=== PATIENT | male | born 1945 | race Caucasian/White ===

== ENCOUNTER 2016-07-02 20:42 | Emergency (ER) | payer OTHER ==
[~2016-07-02] VITALS: Ht 172.7 cm; Wt 83.9 kg
[~2016-07-02 20:42] MED LIST: ASPI81TA2 PO; ATOR40TA59 PO; CYCL10TA2 PO; FURO20TA3 PO; GLIP5TAB10 PO; HYDR-971 PO; INSU100C4 SQ; INSU100I13 SQ; LEVO25TA4 PO; LISI40TA PO; METO25TA4 PO; MULT1TAB52 PO; OMEG500C3 PO; OMEP40CA5 PO; OXYC-323 PO; PRAZ2CAP2 PO; VALA10005 PO
[2016-07-02 20:45] VITALS: BP 131/60
--- NOTE | 2016-07-02 23:06 | ED.ADGEN ---
Past Medical History Past Medical History: Diabetes-Type II, Gallstones, GERD, High Cholesterol, Hypertension, Hypothyroid, Pancreatitis, Renal Disease, Renal Failure, Sciatica , Other Additional Past Medical Histor: PTSD;CHRONIC BACK PAIN,ENLARGED PROSTATE,CKD Past Surgical History: Appendectomy, Cholecystectomy, Tonsillectomy, Other Additional Past Surgical Histo: sinus sx; abdominal,HERNIA X2,L ENDARECTOMY, BILATERAL LEG VEIN STRIPPING Alcohol Use: Rarely Drug Use: None Adult General Chief Complaint Chief Complaint: MULTIPLE COMPLAINTS HPI HPI Patient is a 70 year old [man, history of type 2 diabetes mellitus, hypertension, hyperlipidemia, pancreatitis, chronic renal insufficiency, who presents to the emergency department with a complaint of several days of cough, generalized malaise, body aches, sore throat, with nausea and vomiting times several episodes today. Patient is positive for sick contacts among his family. He denies any abdominal pain, any diarrhea, states that he had a temperature of 101.1 at home. Has not taken any antipyretics prior to coming to the ED, temperature here is 99.2. patient states it experiencing chronic sinus problems , and finished a course of antibiotics today from his primary care provider, amoxicillin for his sinuses, he states that he does not believe this has helped , denies any change in his symptoms, complaining of congestion and occasional headaches. Review of Systems Review of Systems Constitutional: Denies fever or chills. [] Eyes: Denies change in visual acuity. [] HENT: Nasal congestion, sore throat and cough. Respiratory: Denies shortness breath, complaining of cough. Cardiovascular: Denies chest pain or edema. [] GI: Denies abdominal pain, nausea, vomiting, no bloody stools or diarrhea. : Denies dysuria. [] Musculoskeletal: Denies back pain or joint pain. [] Integument: Denies rash. [] Neurologic: Denies headache, focal weakness or sensory changes. [] Endocrine: Denies polyuria or polydipsia. [] Lymphatic: Denies swollen glands. [] Psychiatric: Denies depression or anxiety. [] Current Medications Current Medications Current Medications Medications (Trade) Dose Ordered Sig/Hayley Start Time Stop Time Status Last Admin Dose Admin Acetaminophen (Tylenol) 1,000 mg 1X ONCE 07/02/16 23:30 07/02/16 23:31 DC 2/15/17 23:53 1,000 MG Benzonatate (Tessalon Perle) 100 mg 1X ONCE 07/02/16 23:30 07/02/16 23:31 DC 07/02/16 23:53 100 MG Ondansetron HCl (Zofran Odt) 4 mg STK-MED ONCE 07/02/16 23:57 07/02/16 23:58 DC Ondansetron HCl (Zofran) 4 mg 1X ONCE 07/02/16 23:30 07/02/16 23:31 DC Allergies Allergies Allergies Coded Allergies Type Severity Reaction Last Updated Verified azithromycin Allergy Intermediate 04/30/16 No divalproex sodium Allergy Intermediate 04/30/16 No niacin Allergy Intermediate 04/30/16 No Physical Exam Physical Exam Constitutional: Well developed, well nourished, no acute distress, non-toxic appearance. [] HENT: Normocephalic, atraumatic, bilateral external ears normal, oropharynx moist, no oral exudates, turbinate are mildly swollen, clear rhinorrhea noted, patient with injection oropharynx, no exudate identified. Eyes: PERRLA, EOMI, conjunctiva normal, no discharge. [] Neck: Normal range of motion, no tenderness, supple, no stridor. [] Cardiovascular:Heart rate regular rhythm, no murmur, S1, S2, rubs or gallops. [] Lungs & Thorax: Bilateral breath sounds clear to auscultation, no wheezing, rhonchi, rales. No chest wall tenderness or crepitus. [] Abdomen: Bowel sounds normal, soft, no tenderness, no rebound, rigidity, no guarding, no masses, no pulsatile masses. [] Skin: Warm, dry, no erythema, no rash. [] Back: No tenderness, no CVA tenderness. [] Extremities: No tenderness, no cyanosis, no clubbing, ROM intact, no edema. [ Negative Homans sign.] Neurologic: Alert and oriented X 3, normal motor function, normal sensory function, no focal deficits noted. [] Psychologic: Affect normal, judgement normal, mood normal. [] Current Patient Data Vital Signs Vital Signs Date Time Temp Pulse Resp B/P Pulse Ox O2 Delivery O2 Flow Rate FiO2 07/02/16 20:45 99.2 93 18 131/60 97 Room Air 99.2 Lab Values Laboratory Tests Test 07/02/16 22:35 07/02/16 23:25 Influenza Type A Antigen Negative (NEGATIVE) Influenza Type B Antigen Negative (NEGATIVE) White Blood Count 11.1x10^3/uL (4.0-11.0) H Red Blood Count 4.91x10^6/uL (4.30-5.70) Hemoglobin 15.8g/dL (13.0-17.5) Hematocrit 47.7% (39.0-53.0) Mean Corpuscular Volume 97fL (79-100) Mean Corpuscular Hemoglobin 32pg (25-35) Mean Corpuscular Hemoglobin Concent 33g/dL (31-37) Red Cell Distribution Width 14.5% (11.5-14.5) Platelet Count 94x10^3/uL (140-400) L Neutrophils (%) (Auto) 89% (31-73) H Lymphocytes (%) (Auto) 3% (24-48) L Monocytes (%) (Auto) 7% (0-9) Eosinophils (%) (Auto) 1% (0-3) Basophils (%) (Auto) 0% (0-3) Neutrophils # (Auto) 9.9x10^3uL (1.8-7.7) H Lymphocytes # (Auto) 0.3x10^3/uL (1.0-4.8) L Monocytes # (Auto) 0.7x10^3/uL (0.0-1.1) Eosinophils # (Auto) 0.1x10^3/uL (0.0-0.7) Basophils # (Auto) 0.0x10^3/uL (0.0-0.2) Platelet Estimate Pending Sodium Level 136mmol/L (136-145) Potassium Level 4.6mmol/L (3.5-5.1) Chloride Level 103mmol/L (98-107) Carbon Dioxide Level 30mmol/L (21-32) Anion Gap 3 (6-14) L Blood Urea Nitrogen 36mg/dL (8-26) H Creatinine 1.7mg/dL (0.7-1.3) H Estimated GFR (Cockcroft-Gault) 40.2 Glucose Level 149mg/dL (70-99) H Calcium Level 9.0mg/dL (8.5-10.1) Total Bilirubin 0.9mg/dL (0.2-1.0) Direct Bilirubin 0.1mg/dL (0.0-0.2) Aspartate Amino Transferase (AST) 21U/L (15-37) Alanine Aminotransferase (ALT) 24U/L (16-63) Alkaline Phosphatase 58U/L (46-116) Total Protein 7.1g/dL (6.4-8.2) Albumin 3.5g/dL (3.4-5.0) Lipase 200U/L (73-393) Laboratory Tests 07/02/16 23:25 Laboratory Tests 07/02/16 23:25 EKG EKG ECG: Sinus rhythm, heart rate 90 bpm, no ectopy. As interpreted by me. Radiology/Procedures Radiology/Procedures Chest x-ray: Two-view: Normal cardiopulmonary silhouette, no infiltrates, no effusions, no infiltrates, no soft tissue or bony abnormalities identified. As interpreted by me. [] Course & Med Decision Making Course & Med Decision Making Pertinent Labs and Imaging studies reviewed. (See chart for details) On reevaluation patient states he is feeling better, and has received Tessalon Perle and Tylenol in the ED without issue. Symptoms and examination are consistent with a viral illness, patient's flu swab was negative and the ED. Was ordered Zofran, was not administered at this point, and patient states that he is ready to go home. I did discuss with patient that his laboratory studies revealed some renal sufficiency, she states he is consistent with his prior. Discussed with patient that as he is been unsuccessful in [facility], discussed that he will be given the number for Dr. Sorensen of otolaryngology, and he can attempt to make an appointment for additional evaluation to this resource, or his primary care provider again. We discussed concerning symptoms that prompt return, patient is anxious to be discharged at this time. Discussed additional adjuvant to use for his chronic sinus issues, at this time I'm no evidence of active infection, we'll hold off on additional antibiotics, will tend Flonase for congestive symptoms, with follow-up as previously discussed, and return to the ED as needed. Patient voiced understanding and agreement, discharged home in stable condition with plan as above. Dragon Disclaimer Dragon Disclaimer This electronic medical record was generated, in whole or in part, using a voice recognition dictation system. Departure Impression: Primary Impression: Viral illness Additional Impression: Sinus congestion Disposition: HOME, SELF-CARE Condition: IMPROVED Scripts Fluticasone Propionate (Flonase Allergy Relief)9.9 Ml [place].susp2 Sprays NS DAILY PRN CONGESTION #1 BOTTLE Prov:SHANTEL TORRES DO 07/03/16 Problem Qualifiers SHANTEL TORRES DO Jul 02, 2016 23:06
[2016-07-02 23:12] LABS: OBC FLU VALID
[2016-07-02] MEDS ORDERED: ONDANSETRON PF 4 MG/2 ML VIAL. IV ONE (23:30)
[2016-07-02] MEDS ORDERED: ACETAMINOPHEN 500 MG TABLET PO ONE (23:30)
[2016-07-02] MEDS ORDERED: BENZONATATE 100 MG CAPSULE. PO ONE (23:30)
[2016-07-02 23:37] LABS: BASO % 0 % (0-3); EOS % 1 % (0-3); HEMATOCRIT 47.7 % (39.0-53.0); HEMOGLOBIN 15.8 g/dL (13.0-17.5); LYMPH # 0.3 x10^3/uL (1.0-4.8); LYMPH % 3 % (24-48); MEAN CORPUSCULAR HEMOGLOBIN 32 pg (25-35); MEAN CORPUSCULAR HGB CONC 33 g/dL (31-37); MEAN CORPUSCULAR VOLUME 97 fL (79-100); MONO % 7 % (0-9); NEUT % 89 % (31-73); PLATELET COUNT 94 x10^3/uL (140-400); RED BLOOD COUNT 4.91 x10^6/uL (4.30-5.70); RED CELL DISTRIBUTION WIDTH 14.5 % (11.5-14.5); WHITE BLOOD COUNT 11.1 x10^3/uL (4.0-11.0)
[2016-07-02 23:51] LABS: CREATININE 1.7 mg/dL (0.7-1.3); GFR 40.2; POTASSIUM 4.6 mmol/L (3.5-5.1)
[2016-07-02 23:55] LABS: ALBUMIN 3.5 g/dL (3.4-5.0); DIRECT BILIRUBIN 0.1 mg/dL (0.0-0.2); TOTAL BILIRUBIN 0.9 mg/dL (0.2-1.0); TOTAL PROTEIN 7.1 g/dL (6.4-8.2)
[2016-07-02] MEDS ORDERED: ONDANSETRON ODT 4 MG TAB.RAPDIS ONE (23:57)
[2016-07-03] MEDS ORDERED: FLUT9.9S NS (00:15)
[2016-07-03 05:01] LABS: % EOS 1 % (0-5)
[2016-07-03 05:02] LABS: PLT ESTIMATE DECREASED (ADEQUATE)
--- NOTE | 2016-07-03 07:36 | RAD ---
Chest, 2 views, 07/02/2016: History: Cough and fever The heart size and pulmonary vascularity are normal. No pulmonary infiltrates are seen. There is no evidence of pleural fluid. There is deformity of the second and third ribs on the right which may be on a congenital or posttraumatic basis. There are mild scattered spurs in the spine. IMPRESSION: No acute cardiopulmonary abnormality is detected.
== END 2016-07-03 00:27 | disposition home or self-care (01) ==
LOC: ER 20:42
DX: B34.9 Viral infection, unspecified (principal); R11.2 Nausea with vomiting, unspecified; M79.1 Myalgia; E78.00 Pure hypercholesterolemia, unspecified; E11.22 Type 2 diabetes mellitus with diabetic chronic kidney disease; I12.9 Hypertensive chronic kidney disease with stage 1 through stage 4 chronic kidney disease, or unspecified chronic kidney disease; N18.9 Chronic kidney disease, unspecified; E03.9 Hypothyroidism, unspecified; G89.29 Other chronic pain; F43.10 Post-traumatic stress disorder, unspecified; K21.9 Gastro-esophageal reflux disease without esophagitis; N40.0 Benign prostatic hyperplasia without lower urinary tract symptoms; Z90.49 Acquired absence of other specified parts of digestive tract; Z90.89 Acquired absence of other organs
CPT/HCPCS: 36415; 71020; 80048; 80076; 82947; 83690; 85007; 85027; 87804; 99285-25

== ENCOUNTER 2016-09-12 12:52 | Emergency (ER) | payer OTHER ==
[~2016-09-12] VITALS: Ht 172.7 cm; Wt 83.9 kg
[~2016-09-12 12:52] MED LIST changes: +FLUT9.9S NS
[2016-09-12 13:21] LABS: BILIRUBIN,URINE NEGATIVE (NEG); GLUCOSE,URINE NEGATIVE (NEG); NITRITE,URINE NEGATIVE (NEG); PH,URINE 5.5; PROTEIN,URINE 30 mg/dL (NEG-TRACE); UROBILINOGEN,URINE 0.2 mg/dL (0.2 mg/dL)
[2016-09-12 13:29] LABS: BACTERIA,URINE 0 /HPF (0-FEW); RBC,URINE 0 /HPF (0-2)
[2016-09-12] MEDS ORDERED: ONDANSETRON PF 4 MG/2 ML VIAL. IV ONE (13:30)
[2016-09-12] MEDS ORDERED: FENTANYL PF 100 MCG/2 ML VIAL. IV ONE (13:30)
[2016-09-12 13:34] LABS: BASO % 1 % (0-3); EOS % 4 % (0-3); HEMATOCRIT 41.5 % (39.0-53.0); HEMOGLOBIN 14.1 g/dL (13.0-17.5); LYMPH # 1.1 x10^3/uL (1.0-4.8); LYMPH % 15 % (24-48); MEAN CORPUSCULAR HEMOGLOBIN 33 pg (25-35); MEAN CORPUSCULAR HGB CONC 34 g/dL (31-37); MEAN CORPUSCULAR VOLUME 97 fL (79-100); MONO % 8 % (0-9); NEUT % 73 % (31-73); PLATELET COUNT 115 x10^3/uL (140-400); RED BLOOD COUNT 4.27 x10^6/uL (4.30-5.70); WHITE BLOOD COUNT 7.4 x10^3/uL (4.0-11.0)
[2016-09-12 13:51] LABS: CREATININE 1.6 mg/dL (0.7-1.3); GFR 43.1; POTASSIUM 4.5 mmol/L (3.5-5.1)
--- NOTE | 2016-09-12 15:16 | PHYS DOC ---
Past Medical History Past Medical History: Diabetes-Type II, Gallstones, GERD, High Cholesterol, Hypertension, Hypothyroid, Pancreatitis, Renal Disease, Renal Failure, Sciatica , Other Additional Past Medical Histor: PTSD;CHRONIC BACK PAIN,ENLARGED PROSTATE,CKD, abd hernia Past Surgical History: Appendectomy, Cholecystectomy, Tonsillectomy, Other Additional Past Surgical Histo: sinus sx; abdominal,HERNIA X2,L ENDARECTOMY, BILATERAL LEG VEIN STRIPPING Alcohol Use: Rarely Drug Use: None Adult General Chief Complaint Chief Complaint: ABDOMINAL PAIN HPI HPI Patient is a 70 year old male who presents with rectal pain with bowel movements and suprapubic abdominal pain with urination for the past few days. States he has minimal resting pain in his lower left quadrant. Pains are intermittent, achy and crampy. He denies fever or chills, nausea or vomiting, hematuria, back pain, bloody or dark stools, testicle pain or swelling. Review of Systems Review of Systems Constitutional: Denies fever or chills [] Eyes: Denies change in visual acuity, redness, or eye pain [] HENT: Denies nasal congestion or sore throat [] Respiratory: Denies cough or shortness of breath [] Cardiovascular: No additional information not addressed in HPI [] GI: Denies nausea, vomiting, bloody stools or diarrhea [] : Denies hematuria [] Musculoskeletal: Denies back pain or joint pain [] Integument: Denies rash or skin lesions [] Neurologic: Denies headache, focal weakness or sensory changes [] Endocrine: Denies polyuria or polydipsia [] Current Medications Current Medications Current Medications Medications (Trade) Dose Ordered Sig/Hayley Start Time Stop Time Status Last Admin Dose Admin Fentanyl Citrate (Fentanyl 2ml Vial) 50 mcg 1X ONCE 09/12/16 13:30 09/12/16 13:31 DC 09/12/16 13:59 50 MCG Ondansetron HCl (Zofran) 4 mg 1X ONCE 09/12/16 13:30 09/12/16 13:31 DC 09/12/16 13:58 4 MG Allergies Allergies Allergies Coded Allergies Type Severity Reaction Last Updated Verified azithromycin Allergy Intermediate 04/30/16 No divalproex sodium Allergy Intermediate 04/30/16 No niacin Allergy Intermediate 04/30/16 No Physical Exam Physical Exam Constitutional: Well developed, well nourished, no acute distress, non-toxic appearance. [] HENT: Normocephalic, atraumatic, bilateral external ears normal, oropharynx moist, nose normal. [] Eyes: PERRLA, EOMI. [] Neck: Normal range of motion, supple. [] Cardiovascular:Heart rate regular rhythm, no murmur [] Lungs & Thorax: Bilateral breath sounds clear to auscultation [] Abdomen: Bowel sounds normal, soft, no tenderness. [] Skin: Warm, dry, no erythema, no rash. [] Back: No tenderness, no CVA tenderness. [] Extremities: No tenderness, ROM intact, no edema. [] Neurologic: Alert and oriented X 3, normal motor function, normal sensory function, no focal deficits noted. [] Psychologic: Affect normal, judgement normal, mood normal. [] Current Patient Data Vital Signs Vital Signs Date Time Temp Pulse Resp B/P Pulse Ox O2 Delivery O2 Flow Rate FiO2 09/12/16 15:33 64 25 163/79 97 09/12/16 14:45 Room Air 09/12/16 13:05 98.1 98.1 Lab Values Laboratory Tests Test 09/12/16 13:05 09/12/16 13:25 Urine Collection Type Unknown Urine Color Yellow Urine Clarity Clear Urine pH 5.5 Urine Specific [place] 1.010 Urine Protein 30mg/dL (NEG-TRACE) Urine Glucose (UA) Negativemg/dL (NEG) Urine Ketones (Stick) Negativemg/dL (NEG) Urine Blood Negative (NEG) Urine Nitrite Negative (NEG) Urine Bilirubin Negative (NEG) Urine Urobilinogen Dipstick 0.2mg/dL (0.2 mg/dL) Urine Leukocyte Esterase Negative (NEG) Urine RBC 0/HPF (0-2) Urine WBC 1-4/HPF (0-4) Urine Bacteria 0/HPF (0-FEW) Urine Hyaline Casts Few/HPF Urine Mucus Slight/LPF White Blood Count 7.4x10^3/uL (4.0-11.0) Red Blood Count 4.27x10^6/uL (4.30-5.70) L Hemoglobin 14.1g/dL (13.0-17.5) Hematocrit 41.5% (39.0-53.0) Mean Corpuscular Volume 97fL (79-100) Mean Corpuscular Hemoglobin 33pg (25-35) Mean Corpuscular Hemoglobin Concent 34g/dL (31-37) Red Cell Distribution Width 14.0% (11.5-14.5) Platelet Count 115x10^3/uL (140-400) L Neutrophils (%) (Auto) 73% (31-73) Lymphocytes (%) (Auto) 15% (24-48) L Monocytes (%) (Auto) 8% (0-9) Eosinophils (%) (Auto) 4% (0-3) H Basophils (%) (Auto) 1% (0-3) Neutrophils # (Auto) 5.4x10^3uL (1.8-7.7) Lymphocytes # (Auto) 1.1x10^3/uL (1.0-4.8) Monocytes # (Auto) 0.6x10^3/uL (0.0-1.1) Eosinophils # (Auto) 0.3x10^3/uL (0.0-0.7) Basophils # (Auto) 0.0x10^3/uL (0.0-0.2) Sodium Level 138mmol/L (136-145) Potassium Level 4.5mmol/L (3.5-5.1) Chloride Level 103mmol/L (98-107) Carbon Dioxide Level 26mmol/L (21-32) Anion Gap 9 (6-14) Blood Urea Nitrogen 32mg/dL (8-26) H Creatinine 1.6mg/dL (0.7-1.3) H Estimated GFR (Cockcroft-Gault) 43.1 Glucose Level 122mg/dL (70-99) H Calcium Level 9.0mg/dL (8.5-10.1) Laboratory Tests 09/12/16 13:25 Laboratory Tests 09/12/16 13:25 Radiology/Procedures Radiology/Procedures CT abdomen and pelvis without contrast IMPRESSION: 1. Nonspecific prostatic enlargement. 2. Moderate diffuse bladder wall thickening compatible with chronic bladder outlet obstruction or cystitis. 3. Minimal sigmoid diverticulosis. 4. Left renal cyst. DICTATED and SIGNED BY: SHILPI AUGUST MD DATE: 09/12/16 8202 Course & Med Decision Making Course & Med Decision Making Pertinent Labs and Imaging studies reviewed. (See chart for details) Workup is unremarkable. Discussed supportive care. Return precautions given. He understands and agrees with plan. Dragon Disclaimer Dragon Disclaimer This electronic medical record was generated, in whole or in part, using a voice recognition dictation system. Departure Departure Impression: Primary Impression: Rectal pain Additional Impression: Dysuria Disposition: 01 HOME, SELF-CARE Condition: STABLE Referrals: NON,STAFF (PCP) Patient Instructions: Abdominal Pain (Nonspecific) Additional Instructions: Take Tylenol or ibuprofen as needed for pain. Follow-up with your primary care doctor within one week. Return for any concerns. Problem Qualifiers Kelly MARIANO MD Sep 12, 2016 15:16
--- NOTE | 2016-09-12 15:24 | RAD ---
CT of the abdomen and pelvis without contrast, 09/12/2016: History: Lower abdominal pain, rectal pain Noncontrast scans were obtained as requested. The gallbladder is surgically absent. The unopacified liver shows no abnormality. No pancreatic abnormality is detected. The spleen is of normal size. There is a 2.5 cm low-density lesion arising from the lateral aspect of left kidney compatible with a cyst. There is bilateral renal scarring. The kidneys show no evidence of obstruction. No adrenal abnormality is detected. There is moderate calcific plaquing of the abdominal aorta and its branches without evidence of aneurysm. There is extensive calcific plaquing involving the proximal left renal artery. No abdominal or pelvic adenopathy is seen. The prostate gland is enlarged measuring 5.3 cm in width. There is moderate diffuse bladder wall thickening. The bowel loops are not dilated. There are several small diverticula in the sigmoid region. No paracolonic inflammatory process is seen. No free fluid or free air is evident in the abdomen or pelvis. There is fascial thickening between the rectus abdominis muscles. There are couple of tiny fascial defects near the midline just above the level of the umbilicus containing only fat. No bowel herniation is evident. IMPRESSION: 1. Nonspecific prostatic enlargement. 2. Moderate diffuse bladder wall thickening compatible with chronic bladder outlet obstruction or cystitis. 3. Minimal sigmoid diverticulosis. 4. Left renal cyst. PQRS Compliance Statement: One or more of the following individualized dose reduction techniques were utilized for this examination: 1. Automated exposure control 2. Adjustment of the mA and/or kV according to patient size 3. Use of iterative reconstruction technique
[2016-09-12 15:33] VITALS: BP 163/79
== END 2016-09-12 15:35 | disposition home or self-care (01) ==
LOC: ER 12:52
DX: K62.89 Other specified diseases of anus and rectum (principal); R30.0 Dysuria; R10.32 Left lower quadrant pain; E11.22 Type 2 diabetes mellitus with diabetic chronic kidney disease; I12.9 Hypertensive chronic kidney disease with stage 1 through stage 4 chronic kidney disease, or unspecified chronic kidney disease; N18.9 Chronic kidney disease, unspecified; K21.9 Gastro-esophageal reflux disease without esophagitis; E78.00 Pure hypercholesterolemia, unspecified; E03.9 Hypothyroidism, unspecified; F43.10 Post-traumatic stress disorder, unspecified; G89.29 Other chronic pain; N40.0 Benign prostatic hyperplasia without lower urinary tract symptoms; Z88.8 Allergy status to other drugs, medicaments and biological substances; Z88.1 Allergy status to other antibiotic agents; Z90.49 Acquired absence of other specified parts of digestive tract
CPT/HCPCS: 36415; 74176; 80048; 81001; 85027; 96374; 96375; 99285; J2405; J3010

== ENCOUNTER 2018-09-20 02:39 | Emergency (ER) | payer OTHER ==
[~2018-09-20] VITALS: Ht 170.2 cm; Wt 84.8 kg
[~2018-09-20 02:39] MED LIST changes: +ASPI-630 PO; -ASPI81TA2 PO; +CETI10TA16 PO; +HYDR-3164 PO; -HYDR-971 PO; +LISI-130 PO; -LISI40TA PO; -OXYC-323 PO; +OXYC1TAB15 PO; +PREG75CA PO; +SENN-37 PO; +SIMV40TA3 PO; +TAMS0.4C97 PO; +VENL75TA PO; +[UNRECOGNIZED DRUG - OTHER]
[2018-09-20 02:52] VITALS: BP 147/77
[2018-09-20] MEDS ORDERED: AMOX1TAB61 PO (02:59)
--- NOTE | 2018-09-20 02:59 | PHYS DOC ---
Past Medical History Past Medical History: Diabetes-Type II, Gallstones, GERD, High Cholesterol, Hypertension, Hypothyroid, Pancreatitis, Renal Disease, Renal Failure, Sciatica, Other Additional Past Medical Histor: PTSD;CHRONIC BACK PAIN,ENLARGED PROSTATE,CKD, abd hernia Past Surgical History: Appendectomy, Cholecystectomy, Tonsillectomy, Other Additional Past Surgical Histo: sinus sx; abdominal,HERNIA X2,L ENDARECTOMY,BILATERAL LEG VEIN STRIPPING Alcohol Use: Occasionally Drug Use: None Adult General Chief Complaint Chief Complaint: EARACHE/EAR PAIN HPI HPI Patient is a 72 year old M who presents with right ear pain. This pain has been present for a few days. He denies any fever or chills but does report some radiation of the pain down into his neck and the back of his head dull Review of Systems Review of Systems Constitutional: Denies fever or chills [] Eyes: Denies change in visual acuity, redness, or eye pain [] HENT: Denies nasal congestion or sore throat [] Musculoskeletal: Denies back pain or joint pain [] Integument: Denies rash or skin lesions [] Neurologic: Denies headache, focal weakness or sensory changes [] Endocrine: Denies polyuria or polydipsia [] All other systems were reviewed and found to be within normal limits, except as documented in this note. Current Medications Current Medications Current Medications Medications (Trade) Dose Ordered Sig/Hayley Start Time Stop Time Status Last Admin Dose Admin Amoxicillin/ Clavulanate Potassium (Augmentin 875/ 125mg) 1 tab 1X ONCE 09/20/18 03:30 09/20/18 03:31 DC 09/20/18 03:28 1 TAB Oxycodone/ Acetaminophen (Percocet 5/325) 2 tab 1X ONCE 09/20/18 03:30 09/20/18 03:31 DC 09/20/18 03:28 2 TAB Allergies Allergies Allergies Coded Allergies Type Severity Reaction Last Updated Verified azithromycin Allergy Intermediate 04/30/16 No divalproex sodium Allergy Intermediate 04/30/16 No niacin Allergy Intermediate 04/30/16 No Physical Exam Physical Exam Constitutional: Well developed, well nourished, no acute distress, non-toxic appearance. [] HENT: Normocephalic, atraumatic, oropharynx moist, no oral exudates, nose normal, focal area of erythema on the lateral aspect of the right tympanic mem brane with effusion, no significant bulging . [] no mastoid ttp no lad on the neck Eyes: PERRLA, EOMI, conjunctiva normal, no discharge. [] Neck: Normal range of motion, no tenderness, supple, no stridor. [] Extremities: No tenderness, no cyanosis, no clubbing, ROM intact, no edema. [] Neurologic: Alert and oriented X 3, normal motor function, normal sensory function, no focal deficits noted. [] Psychologic: Affect normal, judgement normal, mood normal. [] Current Patient Data Vital Signs Vital Signs Date Time Temp Pulse Resp B/P (MAP) Pulse Ox O2 Delivery O2 Flow Rate FiO2 09/20/18 03:28 20 98 Room Air 09/20/18 02:52 98.2 68 147/77 (100) 98.2 EKG EKG [] Radiology/Procedures Radiology/Procedures [] Course & Med Decision Making Course & Med Decision Making Pertinent Labs and Imaging studies reviewed. (See chart for details) likely mild otitis media augmentin f/u with primary to ensure clearance [] Dragon Disclaimer Dragon Disclaimer This electronic medical record was generated, in whole or in part, using a voice recognition dictation system. Departure Departure Impression: Primary Impression: Otitis media Disposition: HOME, SELF-CARE Condition: STABLE Referrals: NON,STAFF (PCP) Scripts Amoxicillin/Potassium Clav (AUGMENTIN 875-125 TABLET) 1 Each Tablet 1 TAB PO BID, #14 TAB Prov: LAURA GIRALDO MD 09/20/18 LAURA GIRALDO MD September 20, 2018 02:59
[2018-09-20] MEDS ORDERED: oxyCODONE/APAP 5/325 1 TAB TABLET PO ONE (03:30)
[2018-09-20] MEDS ORDERED: AMOXICILLIN/K CLAV 875/125MG TABLET. PO ONE (03:30)
== END 2018-09-20 03:30 | disposition home or self-care (01) ==
LOC: ER 02:39
DX: H66.91 Otitis media, unspecified, right ear (principal); I12.9 Hypertensive chronic kidney disease with stage 1 through stage 4 chronic kidney disease, or unspecified chronic kidney disease; E11.22 Type 2 diabetes mellitus with diabetic chronic kidney disease; N18.9 Chronic kidney disease, unspecified; G89.29 Other chronic pain; K21.9 Gastro-esophageal reflux disease without esophagitis; E78.00 Pure hypercholesterolemia, unspecified; E03.9 Hypothyroidism, unspecified; Z98.890 Other specified postprocedural states; Z88.1 Allergy status to other antibiotic agents; Z88.8 Allergy status to other drugs, medicaments and biological substances
CPT/HCPCS: 99283

== ENCOUNTER 2019-05-27 01:35 | Inpatient (IN) | payer MEDICARE, OTHER ==
[~2019-05-27] VITALS: Ht 172.7 cm; Wt 90.0 kg
[~2019-05-27 01:35] MED LIST changes: +AMOX1TAB61 PO; +OMEP40CA45 PO; -OMEP40CA5 PO; +SIMV40TA18 PO; -SIMV40TA3 PO
[2019-05-27 01:58] LABS: BASO # 0.1 x10^3/uL (0.0-0.2); BASO % 1 % (0-3); EOS # 0.2 x10^3/uL (0.0-0.7); EOS % 3 % (0-3); HEMATOCRIT 41.9 % (39.0-53.0); HEMOGLOBIN 14.3 g/dL (13.0-17.5); LYMPH % 12 % (24-48); MEAN CORPUSCULAR HEMOGLOBIN 32 pg (25-35); MEAN CORPUSCULAR HGB CONC 34 g/dL (31-37); MEAN CORPUSCULAR VOLUME 94 fL (79-100); MONO # 0.9 x10^3/uL (0.0-1.1); MONO % 10 % (0-9); NEUT # 6.3 x10^3/uL (1.8-7.7); NEUT % 75 % (31-73); PLATELET COUNT 129 x10^3/uL (140-400); RED BLOOD COUNT 4.45 x10^6/uL (4.30-5.70); RED CELL DISTRIBUTION WIDTH 13.9 % (11.5-14.5); WHITE BLOOD COUNT 8.4 x10^3/uL (4.0-11.0)
--- NOTE | 2019-05-27 02:03 | PHYS DOC ---
Past Medical History Past Medical History: Diabetes-Type II, Gallstones, GERD, High Cholesterol, Hypertension, Hypothyroid, Pancreatitis, Renal Disease, Renal Failure, Sciatica, Other Additional Past Medical Histor: PTSD;CHRONIC BACK PAIN,ENLARGED PROSTATE,CKD, abd hernia Past Surgical History: Appendectomy, Cholecystectomy, Tonsillectomy, Other Additional Past Surgical Histo: sinus sx; abdominal,HERNIA X2,L ENDARECTOMY,BILATERAL LEG VEIN STRIPPING Alcohol Use: Occasionally Drug Use: None Adult General Chief Complaint Chief Complaint: ALTERED MENTAL STATUS HPI HPI 73-year-old male with underlying history of CVA, hypertension, insulin-dependent diabetes presents to the emergency department with complaints of right upper extremity heaviness, right facial paresthesia. She had similar complaints on May 19 with facial droop that is still persistent. She was not evaluated at that time in the hospital. He denies any headache or visual change. He has had a history of carotid endarterectomy on the right as well as carotid endarterectomy on the left. Patient has no upper extremity weakness nor ataxia appreciated on examination. Nothing makes his symptoms worse, nothing makes his symptoms better. Patient denies any chest pain, shortness breath, nausea, vomiting Review of Systems Review of Systems Constitutional: Denies fever or chills [] Respiratory: Denies cough or shortness of breath [] Cardiovascular: No additional information not addressed in HPI [] GI: Denies abdominal pain, nausea, vomiting, bloody stools or diarrhea [] Musculoskeletal: Denies back pain or joint pain [] Integument: Denies rash or skin lesions [] Neurologic: Denies headache, focal weakness, + sensory changes [] All other systems were reviewed and found to be within normal limits, except as documented in this note. Current Medications Current Medications Current Medications Medications (Trade) Dose Ordered Sig/Hayley Start Time Stop Time Status Last Admin Dose Admin Info (CONTRAST GIVEN -- Rx MONITORING) 1 each PRN DAILY PRN 05/27/19 02:30 05/29/19 02:29 Iohexol (Omnipaque 350 Mg/ml) 75 ml 1X ONCE 05/27/19 02:30 05/27/19 02:31 DC 05/27/19 02:41 75 ML Allergies Allergies Allergies Coded Allergies Type Severity Reaction Last Updated Verified azithromycin Allergy Intermediate 04/30/16 No divalproex sodium Allergy Intermediate 04/30/16 No niacin Allergy Intermediate 04/30/16 No Physical Exam Physical Exam Constitutional: Well developed, well nourished, no acute distress, non-toxic appearance. [] HENT: Normocephalic, atraumatic, bilateral external ears normal, oropharynx moist, no oral exudates, nose normal. [] Eyes: PERRLA, EOMI, conjunctiva normal, no discharge. [] Neck: Normal range of motion, no tenderness, supple, no stridor. [] Cardiovascular:Heart rate regular rhythm, no murmur [] Lungs & Thorax: Bilateral breath sounds clear to auscultation [] Abdomen: Bowel sounds normal, soft, no tenderness, no masses, no pulsatile masses. [] Skin: Warm, dry, no erythema, no rash. [] Back: No tenderness, no CVA tenderness. [] Extremities: No tenderness, no edema. [] Neurologic: Alert and oriented X 3, see NIHSS. [] Psychologic: Affect normal, judgement normal, mood normal. [] Current Patient Data Vital Signs Vital Signs Date Time Temp Pulse Resp B/P (MAP) Pulse Ox O2 Delivery O2 Flow Rate FiO2 05/27/19 01:38 97.9 71 17 187/83 (117) 98 Room Air 97.9 Lab Values Laboratory Tests Test 05/27/19 01:45 05/27/19 01:51 Glucose (Fingerstick) 138 mg/dL (70-99) H White Blood Count 8.4 x10^3/uL (4.0-11.0) Red Blood Count 4.45 x10^6/uL (4.30-5.70) Hemoglobin 14.3 g/dL (13.0-17.5) Hematocrit 41.9 % (39.0-53.0) Mean Corpuscular Volume 94 fL (79-100) Mean Corpuscular Hemoglobin 32 pg (25-35) Mean Corpuscular Hemoglobin Concent 34 g/dL (31-37) Red Cell Distribution Width 13.9 % (11.5-14.5) Platelet Count 129 x10^3/uL (140-400) L Neutrophils (%) (Auto) 75 % (31-73) H Lymphocytes (%) (Auto) 12 % (24-48) L Monocytes (%) (Auto) 10 % (0-9) H Eosinophils (%) (Auto) 3 % (0-3) Basophils (%) (Auto) 1 % (0-3) Neutrophils # (Auto) 6.3 x10^3/uL (1.8-7.7) Lymphocytes # (Auto) 1.0 x10^3/uL (1.0-4.8) Monocytes # (Auto) 0.9 x10^3/uL (0.0-1.1) Eosinophils # (Auto) 0.2 x10^3/uL (0.0-0.7) Basophils # (Auto) 0.1 x10^3/uL (0.0-0.2) Prothrombin Time 12.3 SEC (11.7-14.0) Prothrombin Time INR 0.9 (0.8-1.1) Activated Partial Thromboplast Time 28 SEC (24-38) Sodium Level 138 mmol/L (136-145) Potassium Level 4.4 mmol/L (3.5-5.1) Chloride Level 101 mmol/L (98-107) Carbon Dioxide Level 29 mmol/L (21-32) Anion Gap 8 (6-14) Blood Urea Nitrogen 39 mg/dL (8-26) H Creatinine 1.9 mg/dL (0.7-1.3) H Estimated GFR (Cockcroft-Gault) 35.0 BUN/Creatinine Ratio 21 (6-20) H Glucose Level 154 mg/dL (70-99) H Calcium Level 9.2 mg/dL (8.5-10.1) Total Bilirubin 0.5 mg/dL (0.2-1.0) Aspartate Amino Transferase (AST) 17 U/L (15-37) Alanine Aminotransferase (ALT) 16 U/L (16-63) Alkaline Phosphatase 94 U/L (46-116) Troponin I Quantitative < 0.017 ng/mL (0.000-0.055) Total Protein 7.3 g/dL (6.4-8.2) Albumin 3.4 g/dL (3.4-5.0) Albumin/Globulin Ratio 0.9 (1.0-1.7) L Laboratory Tests 05/27/19 01:51 Laboratory Tests 05/27/19 01:51 EKG EKG EKG reviewed 0159 - heart rate 69, LAD, ST elevation V2, no STEMI appreciated[] Radiology/Procedures Radiology/Procedures [facility] [address] [place] [address] IMAGING REPORT Signed PATIENT: EM WEISS AACCOUNT: [id number] : 1945 LOCATION: ER AGE: 73 SEX: M EXAM STATUS: REG ER ORD. PHYSICIAN: AMINATA MATHUR MD REASON: paresthesia/heaviness appreciated to RUE/Facial numbness PROCEDURE: CT ANGIOGRAPHY HEAD AND NECK CT angiography head and neck with contrast PQRS statement: CT scans at this facility use dose reduction including either automated exposure control, iterative reconstructions, and /or weight based radiation dosing via mA and kV modification when appropriate to reduce radiation dose to as low as reasonably achievable. Stenosis calculations for CT, MR, and conventional angiography are based upon measurements of the distal ICA diameter in accordance with the NASCET methodology. Stenosis calculations for carotid ultrasound studies are derived from validated velocity criteria which are known to correlate with the NASCET methodology. HISTORY: Right upper extremity and facial numbness and weakness. Paresthesia. Stroke like symptoms. TECHNIQUE: CT imaging of the head and neck with 3-D MIP and volume reconstructions of the arteries with 75 mL Omnipaque 350 intravenous contrast. Neck findings: No ostial stenosis of the vessels from the aorta. Mild dominance of the right vertebral artery. High-grade stenosis ostium of the right vertebral artery from the subclavian of 70 percent or greater. Moderate ostial stenosis right vertebral artery from the subclavian of 50 percent. Left carotid artery demonstrates irregular partially calcified plaque at the bifurcation and throughout the cervical internal carotid and external carotid artery, with less than 50 percent stenosis. The proximal external carotid artery demonstrates a short segment dissection flap without occlusion of the vessel sagittal image 72, axial image 134. No thrombus or occlusion of the left carotid. Right carotid artery demonstrates irregular soft plaque at the distal common carotid and bifurcation and cervical internal carotid with less than 50 percent stenosis. No dissection, thrombus or occlusion. Head findings: Minimal calcified plaque cavernous carotid arteries. No stenosis, thrombus, occlusion or aneurysm. IMPRESSION: 1. No large vessel occlusion. 2. Plaquing of the cervical carotid arteries without significant stenosis or occlusion. Short segment nonocclusive dissection flap of the left external carotid artery. No dissection of the common or internal carotid arteries or vertebral arteries. Electronically signed by: Damaris Kim MD (05/27/2019 3:02 AM) [facility] DICTATED and SIGNED BY: DAMARIS KIM MD DATE: 05/27/19301 [] Course & Med Decision Making Course & Med Decision Making Pertinent Labs and Imaging studies reviewed. (See chart for details) []73-year-old male with underlying history of CVA, hypertension, insulin- dependent diabetes presents to the emergency department with complaints of right upper extremity heaviness, right facial paresthesia/facial droop. He had similar complaints on May 19 with facial droop that is still persistent on exam. He was not evaluated at that time in the hospital. He denies any headache or visual change. He has had a history of carotid endarterectomy on the right as well as carotid endarterectomy on the left. Patient has no upper extremity weakness nor ataxia appreciated on examination. Nothing makes his symptoms worse, nothing makes his symptoms better. Patient denies any chest pain, shortness breath, nausea, vomiting Patient states these current symptoms started 1 hour prior to arrival. Given new onset facial droop from May 19 - patient has absolute contraindication to tPA given stroke within the last 3 months. Labs/Imaging reviewed CT/CTA head/neck reviewed no acute occlusion, no acute hemorrhage NIHHS 3 secondary to facial exam, facial droop, able to raise eyebrows on right - residual from early May Will plan admit and further evaluation with neurology consult Discussed admit with patient Libra Disclaimer [place] Disclaimer This electronic medical record was generated, in whole or in part, using a voice recognition dictation system. NIHSS Stroke Scale NIH Stroke Scale: NIH Stroke Scale Response (Comments) Value Level of Consciousness: 0 Alert/Responsive 0 LOC Questions: 0 Answers both correctly 0 LOC Commands: 0 Performs both tasks 0 Best Gaze: 0 Normal 0 Visual: 0 No visual loss 0 Facial Palsy: 2 Partial paralysis 2 Motor - Left Arm 0 No drift 0 Motor - Right Arm 0 No drift 0 Motor - Left Leg 0 No drift 0 Motor: Right Leg 0 No drift 0 Limb Ataxia: 0 Absent 0 Sensory: 1 Mid to moderate loss 1 Best Language: 0 Normal 0 Dysathria: 0 Normal 0 Extinction and Inattention: 0 Normal 0 Total 3 Departure Departure Impression: Primary Impression: Facial droop as late effect of cerebrovascular accident (CVA) Additional Impressions: Hypertension Diabetes Disposition: 09 ADMITTED INPATIENT Admitting Physician: ABIGAIL Condition: STABLE Referrals: NO PCP (PCP) Critical Care Time Critical care time was 40 minutes exclusive of procedures. Problem Qualifiers Additional Impressions: Hypertension Hypertension type: essential hypertension Qualified Codes: I10 - Essential (primary) hypertension Diabetes Diabetes mellitus type: type 2 Diabetes mellitus terminologist insulin use: unspecified penitentiary insulin use status Diabetes mellitus complication status: with kidney complications Diabetes mellitus complication detail: with chronic kidney disease Chronic kidney disease stage: stage 2 (mild) Qualified Codes: E11.22 - Type 2 diabetes mellitus with diabetic chronic kidney disease; N18.2 - Chronic kidney disease, stage 2 (mild) AMINATA MATHUR MD May 27, 2019 02:03
[2019-05-27 02:07] LABS: CALCIUM 9.2 mg/dL (8.5-10.1); CREATININE 1.9 mg/dL (0.7-1.3); POTASSIUM 4.4 mmol/L (3.5-5.1)
[2019-05-27 02:08] LABS: PROTHROMBIN TIME PATIENT 12.3 SEC (11.7-14.0)
[2019-05-27 02:12] LABS: ALBUMIN 3.4 g/dL (3.4-5.0); ALBUMIN/GLOBULIN RATIO 0.9 (1.0-1.7); TOTAL BILIRUBIN 0.5 mg/dL (0.2-1.0); TOTAL PROTEIN 7.3 g/dL (6.4-8.2)
[2019-05-27] MEDS ORDERED: CONTRAST GIVEN. MC PRN (02:30)
[2019-05-27] MEDS ORDERED: IOHEXOL 350 MG/ML 100 ML VIAL. IV ONE (02:30)
--- NOTE | 2019-05-27 02:47 | RAD ---
CT head without contrast PQRS statement: CT scans at this facility use dose reduction including either automated exposure control, iterative reconstructions, and /or weight based radiation dosing via mA and kV modification when appropriate to reduce radiation dose to as low as reasonably achievable. HISTORY: Paresthesia, right upper extremity and facial numbness and weakness. FINDINGS: 1 cm chronic cavitary right nasal ganglia lacunar ischemic infarct. No acute infarct evident. No acute ischemic changes evident. No intracranial hemorrhage, mass or hydrocephalus. Mild generalized brain atrophy. Subcentimeter probable ossified dural based meningioma overlying the right frontal lobe image 17. Fluid opacification ethmoid sinuses. Orbits, mastoids and bones are unremarkable. IMPRESSION: No acute intracranial CT abnormality. Small chronic right basal ganglia infarct. Ethmoid sinusitis. Electronically signed by: Hilario Kim MD (05/27/2019 2:44 AM) [facility]
--- NOTE | 2019-05-27 03:05 | RAD ---
CT angiography head and neck with contrast PQRS statement: CT scans at this facility use dose reduction including either automated exposure control, iterative reconstructions, and /or weight based radiation dosing via mA and kV modification when appropriate to reduce radiation dose to as low as reasonably achievable. Stenosis calculations for CT, MR, and conventional angiography are based upon measurements of the distal ICA diameter in accordance with the NASCET methodology. Stenosis calculations for carotid ultrasound studies are derived from validated velocity criteria which are known to correlate with the NASCET methodology. HISTORY: Right upper extremity and facial numbness and weakness. Paresthesia. Stroke like symptoms. TECHNIQUE: CT imaging of the head and neck with 3-D MIP and volume reconstructions of the arteries with 75 mL Omnipaque 350 intravenous contrast. Neck findings: No ostial stenosis of the vessels from the aorta. Mild dominance of the right vertebral artery. High-grade stenosis ostium of the right vertebral artery from the subclavian of 70 percent or greater. Moderate ostial stenosis right vertebral artery from the subclavian of 50 percent. Left carotid artery demonstrates irregular partially calcified plaque at the bifurcation and throughout the cervical internal carotid and external carotid artery, with less than 50 percent stenosis. The proximal external carotid artery demonstrates a short segment dissection flap without occlusion of the vessel sagittal image 72, axial image 134. No thrombus or occlusion of the left carotid. Right carotid artery demonstrates irregular soft plaque at the distal common carotid and bifurcation and cervical internal carotid with less than 50 percent stenosis. No dissection, thrombus or occlusion. Head findings: Minimal calcified plaque cavernous carotid arteries. No stenosis, thrombus, occlusion or aneurysm. IMPRESSION: 1. No large vessel occlusion. 2. Plaquing of the cervical carotid arteries without significant stenosis or occlusion. Short segment nonocclusive dissection flap of the left external carotid artery. No dissection of the common or internal carotid arteries or vertebral arteries. Electronically signed by: Hilario Kim MD (05/27/2019 3:02 AM) [facility]
[2019-05-27] MEDS ORDERED: ONDANSETRON PF 4 MG/2 ML VIAL. IV PRN (03:30)
[2019-05-27] MEDS ORDERED: ACETAMINOPHEN 325 MG TABLET. PO PRN ×2 (03:30→11:15)
--- NOTE | 2019-05-27 05:05 | NUR ---
Patient got to room via cart with ED staff, stating "He does not want to be here in hospital and that they told him downstairs that he was headed to get an MRI and than go home. This nurse attempted to assess pt, apply telemetry and pt refused continuously saying he did not want to be here. He received a phone call on his cellphone and than began to ignore this nurse. This nurse will reattempt to assess at a later time once pt has relax into room.
[2019-05-27 06:00] VITALS: BP 137/61
--- NOTE | 2019-05-27 06:37 | EKG ---
[facility] [address] [place] [address] Test Date: 2019-05-27 Test Time: 01:59:59 Pat Name: EM WEISS Department: Room: Gender: M Electromechanical Equipment Assembler: : 1945 Requested By: AMINATA MATHUR Order Number: [id number] Reading MD: Measurements Intervals [place] Rate: 69 P: 34 NC: 204 QRS: -70 QRSD: 122 T: 2 QT: 398 QTc: 427 Interpretive Statements SINUS RHYTHM ABNORMAL LEFT AXIS DEVIATION S1,S2,S3 PATTERN LEFT ANTERIOR FASCICULAR BLOCK LEFT VENTRICULAR HYPERTROPHY QRS(T) CONTOUR ABNORMALITY CONSIDER ANTEROSEPTAL MYOCARDIAL DAMAGE ABNORMAL ECG No previous ECG available for comparison
[2019-05-27 11:00] VITALS: BP 144/61
[2019-05-27] MEDS: IV NORMAL SALINE 1000ML BAG 1,000 ML IV SCH ×2 (11:02→12:05)
[2019-05-27] MEDS ORDERED: IV DEXTROSE 5% 250 ML BAG. IV PRN (11:15)
[2019-05-27] MEDS ORDERED: DEXTROSE 50% 25 GM / 50ML DISP.SYRIN. IV PRN (11:15)
[2019-05-27] MEDS ORDERED: oxyCODONE/APAP 5/325 1 TAB TABLET PO PRN (11:15)
[2019-05-27] MEDS ORDERED: LABETALOL 20 MG/4 ML DISP.SYRIN. IVP PRN (11:15)
[2019-05-27] MEDS ORDERED: ASPIRIN RECTAL 300 MG SUPP. PR PRN (11:15)
[2019-05-27] MEDS ORDERED: ACETAMINOPHEN 650 MG SUPP.RECT. PR PRN (11:15)
[2019-05-27 12:00] VITALS: BP 144/61
[2019-05-27] MEDS ORDERED: CETIRIZINE HCL 10 MG TABLET. PO SCH (12:00)
[2019-05-27] MEDS ORDERED: OMEGA-3 FATTY ACIDS/FISH OIL 1,000 MG CAPSULE. PO SCH (12:00)
[2019-05-27] MEDS ORDERED: MULTIVITAMIN with MINERAL TABLET. PO SCH (12:00)
[2019-05-27] MEDS ORDERED: ASPIRIN ENTERIC COATED 325 MG TABLET.DR. PO SCH (12:00)
[2019-05-27] MEDS ORDERED: glipiZIDE 5 MG TABLET PO SCH (12:00)
[2019-05-27] MEDS ORDERED: METOPROLOL TART IMMED RELEASE 25 MG TABLET. PO SCH (12:00)
[2019-05-27] MEDS ORDERED: TAMSULOSIN 0.4 MG CAP.ER.24H. PO SCH (12:00)
[2019-05-27] MEDS: VENLAFAXINE XR 37.5 MG CAP.ER.24H. PO SCH ×2 (12:00→12:47)
[2019-05-27] MEDS ORDERED: INSULIN LISPRO 300 UNITS/3 ML VIAL. SQ SCH ×2 (12:00)
--- NOTE | 2019-05-27 12:34 | RAD ---
MRI Brain without contrast History: Previous strokes, new right peripheral facial weakness Technique: Multiplanar, multisequential noncontrast MR imaging was performed of the brain. Comparison: There is no previous MRI exam available, comparison with head CT this same day Findings: There is some motion. There is no convincing evidence of recent infarct. There is no intra-axial mass effect or midline shift or extra axial fluid collection. There is degree of hyperostosis frontalis. There is mild generalized supratentorial atrophy, ventricular size proportionate to the sulcal spaces. There is old hemorrhagic lacunar infarct of the right darnell radiata extending to basal ganglia, also small old lacunar infarct of the left basal ganglia. There is other minimal T2 and FLAIR hyperintense signal of the supratentorial parenchyma bilaterally. There is preservation of the major arterial intracranial flow voids at the skull base. There is moderate to severe ethmoid air cell mucosal thickening, mild to moderate sphenoid sinus and left greater than right maxillary sinus mucosal thickening. There is also mild frontal sinus mucosal thickening. There is nonspecific increased CSF signal of the optic nerve sheaths bilaterally. Cerebellar tonsils are normal in location. There is preserved marrow signal of the clivus. There is no abnormality of pineal gland or pituitary gland. Impression: 1. There is no evidence of recent infarct or intracranial mass effect. There are old lacunar infarcts as stated. There is other mild T2 and FLAIR hyperintense signal abnormality of the supratentorial parenchyma probably due to to chronic microvascular ischemic disease. There is mild supratentorial atrophy. 2. There is paranasal sinus mucosal thickening as stated greatest of the ethmoid air cells. Electronically signed by: Derek Barbosa MD (05/27/2019 12:31 PM) [id number]
--- NOTE | 2019-05-27 13:26 | PDOC2 ---
NEUROLOGY CONSULT Date of Admission Date of Admission DATE: 05/27/19 TIME: 13:15 Reason for Consult Reason for Consult: Subacute stroke Referring Physician Referring Physician: Dr. Heredia PCP: [place] Source Source: Chart review, Patient History of Present Illness History of Present Illness The patient is a 73-year-old right-handed male with history of several strokes involving right-sided weakness, left-sided weakness, and he is also had a right carotid endarterectomy last year and a left carotid endarterectomy several years before that. His chief complaint is listed as altered mental status, but he mainly was here because he had some pain in the right arm. 9 days ago he developed acute onset of right facial droop but did not seek medical attention. Past Medical History Cardiovascular: HTN, Hyperlipidemia, Other ( hypotension) Pulmonary: Pneumonia, Other ( sleep apnea) CENTRAL NERVOUS SYSTEM: CVA GI: GERD, Other (Pancreatitis, abdominal hernia) Hepatobiliary: Cholelithiasis Psych: Other ( PTSD) Musculoskeletal: low back pain, Other ( cervical disc disease, fractures) Infectious disease: Herpes zoster Renal/: Chronic renal insuff, Benign prostatic enlarg. Endocrine: Diabetes, Hypothyroidism Past Surgical History Past Surgical History: Appendectomy, Cholecystectomy, Cataract Removal, Hernia Repair ( abdominal times 2), Tonsillectomy, Other ( bilateral carotid endarterectomies, vein stripping) Family History Family History: Cancer Social History Social History Single, lives with another woman and his son, rare alcohol, quit smoking Current Medications Current Medications Current Medications Iohexol (Omnipaque 350 Mg/ml) 75 ml 1X ONCE IV Last administered on 05/27/19at 02:41; Start 05/27/19 at 02:30; Stop 05/27/19 at 02:31; Status DC Info (CONTRAST GIVEN -- Rx MONITORING) 1 each PRN DAILY PRN MC SEE COMMENTS; Start 05/27/19 at 02:30; Stop 05/29/19 at 02:29 Ondansetron HCl (Zofran) 4 mg PRN Q8HRS PRN IV NAUSEA/VOMITING; Start 05/27/19 at 03:30; Stop 05/28/19 at 03:29 Acetaminophen (Tylenol) 650 mg PRN Q4HRS PRN PO FEVER; Start 05/27/19 at 03:30; Stop 05/28/19 at 03:29 Sodium Chloride 1,000 ml @ 100 mls/hr Q10H IV ; Start 05/27/19 at 11:02 Labetalol HCl (Normodyne Iv Push) 10 mg PRN Q10MIN PRN IVP HTN >170; Start 05/27/19 at 11:15 Atorvastatin Calcium (Lipitor) 80 mg QHS PO ; Start 05/27/19 at 21:00 Acetaminophen (Tylenol) 650 mg PRN Q6HRS PRN PO TEMP > 100.4F; Start 05/27/19 at 11:15 Acetaminophen (Tylenol Supp) 650 mg PRN Q4HRS PRN NM TEMP > 100.4F; Start 05/27/19 at 11:15 Aspirin (Ecotrin) 325 mg DAILYWBKFT PO ; Start 05/27/19 at 12:00 Aspirin (Aspirin Rectal Supp) 300 mg PRN DAILY PRN NM IF UNABLE TO TAKE PO; Start 05/27/19 at 11:15 Insulin Human Lispro (HumaLOG) 0-7 UNITS TIDWMEALS SQ Last administered on 05/27/19at 12:37; Start 05/27/19 at 12:00 Dextrose (Dextrose 50%-Water Syringe) 12.5 gm PRN Q15MIN PRN IV SEE COMMENTS; Start 05/27/19 at 11:15 Dextrose (Iv Dextrose 5%) 250 ml PRN Q15MIN PRN IV SEE COMMENTS; Start 05/27/19 at 11:15 Cetirizine HCl (ZyrTEC) 10 mg DAILY PO Last administered on 05/27/19at 12:47; Start 05/27/19 at 12:00 Glipizide (Glucotrol) 10 mg DAILYWBKFT PO Last administered on 05/27/19at 12:47; Start 05/27/19 at 12:00 Lisinopril (Prinivil) 40 mg DAILY PO ; Start 05/28/19 at 09:00; Status UNV Metoprolol Tartrate (Lopressor) 25 mg BID PO Last administered on 05/27/19at 12:00; Start 05/27/19 at 12:00 Oxycodone/ Acetaminophen (Percocet 5/325) 1 tab PRN Q6HRS PRN PO PAIN; Start 05/27/19 at 11:15 Tamsulosin HCl (Flomax) 0.4 mg DAILY PO Last administered on 05/27/19at 12:48; Start 05/27/19 at 12:00 Venlafaxine HCl (Effexor Xr) 75 mg DAILY PO ; Start 05/27/19 at 12:00 Fluticasone Propionate (Flonase) 2 spray PRN DAILY PRN NS congestion; Start 05/28/19 at 09:00 Insulin Human Lispro (HumaLOG) 14 units TIDWMEALS SQ ; Start 05/27/19 at 12:00 Insulin Glargine (Lantus Syringe) 20 unit QHS SQ ; Start 05/27/19 at 21:00 Multivitamins (Thera M Plus) 1 tab DAILY PO Last administered on 05/27/19at 12:47; Start 05/27/19 at 12:00 Fish Oil (Fish Oil) 1,000 mg DAILY PO Last administered on 05/27/19at 12:48; Start 05/27/19 at 12:00 Non-Formulary Medication (Valacyclovir Hcl (Valtrex)) 1 tab TID PO ; Start 05/27/19 at 14:00; Status UNV Active Scripts Active Augmentin 875-125 Tablet (Amoxicillin/Potassium Clav) 1 Each Tablet 1 Tab PO BID Flonase Allergy Relief (Fluticasone Propionate) 9.9 Ml Carmi.susp 2 Sprays NS DAILY PRN Percocet 5-325 Mg Tablet (Oxycodone/Acetaminophen) 1 Each Tablet 1-2 Tab PO Q4-6HRS Valtrex (Valacyclovir Hcl) 1,000 Mg Tablet 1 Tab PO TID Reported Cetirizine Hcl 10 Mg Tablet 1 Tab PO PRN DAILY Venlafaxine Hcl 75 Mg Tablet 1 Tab PO PRN DAILY Flomax (Tamsulosin Hcl) 0.4 Mg Cap.er.24h 1 Cap PO PRN DAILY [gilbert] 1 Tab DAILY Simvastatin 40 Mg Tablet 40 Mg PO HS Multivitamins (Multivitamin) 1 Each Tablet 1 Tab PO DAILY Metoprolol Tartrate 25 Mg Tablet 1 Tab PO BID Lisinopril 40 Mg Tablet 1 Tab PO DAILY Lantus Solostar (Insulin Glargine,Hum.rec.anlog) 100 Unit/1 Ml Insuln.pen 20 Unit SQ QHS Novolog (Insulin Aspart) 100 Unit/1 Ml Cartridge 14 Unit SQ DAILYBFRSUP Glipizide 5 Mg Tablet 10 Mg PO DAILYWBKFT Fish Oil (Olean-3 Fatty Acids) 500 Mg Capsule 1,000 Mg PO DAILY Allergies Allergies: Coded Allergies: azithromycin (Unverified Allergy, Intermediate, 04/30/16) divalproex sodium (Unverified Allergy, Intermediate, 04/30/16) niacin (Unverified Allergy, Intermediate, 04/30/16) ROS Review of System Negative for fever, chills, weight loss, shortness of breath, chest pain, indigestion, hematochezia, melena, and dysuria. Full 14-point review of systems is negative. Physical Exam Physical Examination General: Well-developed, well-nourished, White male, in no acute distress HEENT: Normocephalic andatraumatic. Tympanic membranes clear.Temporal arteries pulsatile and nontender. Neck: Supple without bruit, no meningismus Musculoskeletal: Stability:see neurologic. Gait exam:see neurologic. Tone:see neurologic.Strength:see neurologic. Neurological: Mental Status:intact, orientation, memory, attention span/concentration, language, fund of knowledge normal. Cranial Nerves:Pupils equal and reactive to light, extraocular movements areintact, visual brito are full to confrontation. Facial sensation is normal. There is a right peripheral facial weakness. Vestibulo-ocular reflex is intact. Palate elevates and tongue protrudes in midline. All other cranial related problems are negative except as mentioned before.Reflexes:2+ and symmetric with flexor plantar responses. Motor:5/5 strength with normal tone and bulk. Coordination:Finger-nose finger and lyvo-im-lpoh testing are normal. Rapid alternating movements and fine finger movements are intact. Gait: antalgic, can tandem. Sensory:Normal pinprick, vibration, light touch, proprioception. Vitals VITALS Vital Signs Date Time Temp Pulse Resp B/P (MAP) Pulse Ox O2 Delivery O2 Flow Rate FiO2 05/27/19 12:00 67 144/61 05/27/19 11:00 97.8 20 94 Room Air 97.8 Labs Labs Laboratory Tests Test 05/27/19 01:45 05/27/19 01:51 05/27/19 12:31 Glucose (Fingerstick) 138 mg/dL (70-99) 203 mg/dL (70-99) White Blood Count 8.4 x10^3/uL (4.0-11.0) Red Blood Count 4.45 x10^6/uL (4.30-5.70) Hemoglobin 14.3 g/dL (13.0-17.5) Hematocrit 41.9 % (39.0-53.0) Mean Corpuscular Volume 94 fL (79-100) Mean Corpuscular Hemoglobin 32 pg (25-35) Mean Corpuscular Hemoglobin Concent 34 g/dL (31-37) Red Cell Distribution Width 13.9 % (11.5-14.5) Platelet Count 129 x10^3/uL (140-400) Neutrophils (%) (Auto) 75 % (31-73) Lymphocytes (%) (Auto) 12 % (24-48) Monocytes (%) (Auto) 10 % (0-9) Eosinophils (%) (Auto) 3 % (0-3) Basophils (%) (Auto) 1 % (0-3) Neutrophils # (Auto) 6.3 x10^3/uL (1.8-7.7) Lymphocytes # (Auto) 1.0 x10^3/uL (1.0-4.8) Monocytes # (Auto) 0.9 x10^3/uL (0.0-1.1) Eosinophils # (Auto) 0.2 x10^3/uL (0.0-0.7) Basophils # (Auto) 0.1 x10^3/uL (0.0-0.2) Prothrombin Time 12.3 SEC (11.7-14.0) Prothromb Time International Ratio 0.9 (0.8-1.1) Activated Partial Thromboplast Time 28 SEC (24-38) Sodium Level 138 mmol/L (136-145) Potassium Level 4.4 mmol/L (3.5-5.1) Chloride Level 101 mmol/L (98-107) Carbon Dioxide Level 29 mmol/L (21-32) Anion Gap 8 (6-14) Blood Urea Nitrogen 39 mg/dL (8-26) Creatinine 1.9 mg/dL (0.7-1.3) Estimated GFR (Cockcroft-Gault) 35.0 BUN/Creatinine Ratio 21 (6-20) Glucose Level 154 mg/dL (70-99) Calcium Level 9.2 mg/dL (8.5-10.1) Total Bilirubin 0.5 mg/dL (0.2-1.0) Aspartate Amino Transf (AST/SGOT) 17 U/L (15-37) Alanine Aminotransferase (ALT/SGPT) 16 U/L (16-63) Alkaline Phosphatase 94 U/L (46-116) Troponin I Quantitative < 0.017 ng/mL (0.000-0.055) Total Protein 7.3 g/dL (6.4-8.2) Albumin 3.4 g/dL (3.4-5.0) Albumin/Globulin Ratio 0.9 (1.0-1.7) Laboratory Tests Test 05/27/19 01:45 05/27/19 01:51 05/27/19 12:31 Glucose (Fingerstick) 138 mg/dL (70-99) 203 mg/dL (70-99) White Blood Count 8.4 x10^3/uL (4.0-11.0) Red Blood Count 4.45 x10^6/uL (4.30-5.70) Hemoglobin 14.3 g/dL (13.0-17.5) Hematocrit 41.9 % (39.0-53.0) Mean Corpuscular Volume 94 fL (79-100) Mean Corpuscular Hemoglobin 32 pg (25-35) Mean Corpuscular Hemoglobin Concent 34 g/dL (31-37) Red Cell Distribution Width 13.9 % (11.5-14.5) Platelet Count 129 x10^3/uL (140-400) Neutrophils (%) (Auto) 75 % (31-73) Lymphocytes (%) (Auto) 12 % (24-48) Monocytes (%) (Auto) 10 % (0-9) Eosinophils (%) (Auto) 3 % (0-3) Basophils (%) (Auto) 1 % (0-3) Neutrophils # (Auto) 6.3 x10^3/uL (1.8-7.7) Lymphocytes # (Auto) 1.0 x10^3/uL (1.0-4.8) Monocytes # (Auto) 0.9 x10^3/uL (0.0-1.1) Eosinophils # (Auto) 0.2 x10^3/uL (0.0-0.7) Basophils # (Auto) 0.1 x10^3/uL (0.0-0.2) Prothrombin Time 12.3 SEC (11.7-14.0) Prothromb Time International Ratio 0.9 (0.8-1.1) Activated Partial Thromboplast Time 28 SEC (24-38) Sodium Level 138 mmol/L (136-145) Potassium Level 4.4 mmol/L (3.5-5.1) Chloride Level 101 mmol/L (98-107) Carbon Dioxide Level 29 mmol/L (21-32) Anion Gap 8 (6-14) Blood Urea Nitrogen 39 mg/dL (8-26) Creatinine 1.9 mg/dL (0.7-1.3) Estimated GFR (Cockcroft-Gault) 35.0 BUN/Creatinine Ratio 21 (6-20) Glucose Level 154 mg/dL (70-99) Calcium Level 9.2 mg/dL (8.5-10.1) Total Bilirubin 0.5 mg/dL (0.2-1.0) Aspartate Amino Transf (AST/SGOT) 17 U/L (15-37) Alanine Aminotransferase (ALT/SGPT) 16 U/L (16-63) Alkaline Phosphatase 94 U/L (46-116) Troponin I Quantitative < 0.017 ng/mL (0.000-0.055) Total Protein 7.3 g/dL (6.4-8.2) Albumin 3.4 g/dL (3.4-5.0) Albumin/Globulin Ratio 0.9 (1.0-1.7) Images Images MRI Brain without contrast History: Previous strokes, new right peripheral facial weakness Technique: Multiplanar, multisequential noncontrast MR imaging was performed of the brain. Comparison: There is no previous MRI exam available, comparison with head CT this same day Findings: There is some motion. There is no convincing evidence of recent infarct. There is no intra-axial mass effect or midline shift or extra axial fluid collection. There is degree of hyperostosis frontalis. There is mild generalized supratentorial atrophy, ventricular size proportionate to the sulcal spaces. There is old hemorrhagic lacunar infarct of the right darnell radiata extending to basal ganglia, also small old lacunar infarct of the left basal ganglia. There is other minimal T2 and FLAIR hyperintense signal of the supratentorial parenchyma bilaterally. There is preservation of the major arterial intracranial flow voids at the skull base. There is moderate to severe ethmoid air cell mucosal thickening, mild to moderate sphenoid sinus and left greater than right maxillary sinus mucosal thickening. There is also mild frontal sinus mucosal thickening. There is nonspecific increased CSF signal of the optic nerve sheaths bilaterally. Cerebellar tonsils are normal in location. There is preserved marrow signal of the clivus. There is no abnormality of pineal gland or pituitary gland. Impression: 1. There is no evidence of recent infarct or intracranial mass effect. There are old lacunar infarcts as stated. There is other mild T2 and FLAIR hyperintense signal abnormality of the supratentorial parenchyma probably due to to chronic microvascular ischemic disease. There is mild supratentorial atrophy. 2. There is paranasal sinus mucosal thickening as stated greatest of the ethmoid air cells. CT head without contrast PQRS statement: CT scans at this facility use dose reduction including either automated exposure control, iterative reconstructions, and /or weight based radiation dosing via mA and kV modification when appropriate to reduce radiation dose to as low as reasonably achievable. HISTORY: Paresthesia, right upper extremity and facial numbness and weakness. FINDINGS: 1 cm chronic cavitary right nasal ganglia lacunar ischemic infarct. No acute infarct evident. No acute ischemic changes evident. No intracranial hemorrhage, mass or hydrocephalus. Mild generalized brain atrophy. Subcentimeter probable ossified dural based meningioma overlying the right frontal lobe image 17. Fluid opacification ethmoid sinuses. Orbits, mastoids and bones are unremarkable. IMPRESSION: No acute intracranial CT abnormality. Small chronic right basal ganglia infarct. Ethmoid sinusitis. CT angiography head and neck with contrast PQRS statement: CT scans at this facility use dose reduction including either automated exposure control, iterative reconstructions, and /or weight based radiation dosing via mA and kV modification when appropriate to reduce radiation dose to as low as reasonably achievable. Stenosis calculations for CT, MR, and conventional angiography are based upon measurements of the distal ICA diameter in accordance with the NASCET methodology. Stenosis calculations for carotid ultrasound studies are derived from validated velocity criteria which are known to correlate with the NASCET methodology. HISTORY: Right upper extremity and facial numbness and weakness. Paresthesia. Stroke like symptoms. TECHNIQUE: CT imaging of the head and neck with 3-D MIP and volume reconstructions of the arteries with 75 mL Omnipaque 350 intravenous contrast. Neck findings: No ostial stenosis of the vessels from the aorta. Mild dominance of the right vertebral artery. High-grade stenosis ostium of the right vertebral artery from the subclavian of 70 percent or greater. Moderate ostial stenosis right vertebral artery from the subclavian of 50 percent. Left carotid artery demonstrates irregular partially calcified plaque at the bifurcation and throughout the cervical internal carotid and external carotid artery, with less than 50 percent stenosis. The proximal external carotid artery demonstrates a short segment dissection flap without occlusion of the vessel sagittal image 72, axial image 134. No thrombus or occlusion of the left carotid. Right carotid artery demonstrates irregular soft plaque at the distal common carotid and bifurcation and cervical internal carotid with less than 50 percent stenosis. No dissection, thrombus or occlusion. Head findings: Minimal calcified plaque cavernous carotid arteries. No stenosis, thrombus, occlusion or aneurysm. IMPRESSION: 1. No large vessel occlusion. 2. Plaquing of the cervical carotid arteries without significant stenosis or occlusion. Short segment nonocclusive dissection flap of the left external carotid artery. No dissection of the common or internal carotid arteries or vertebral arteries. 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 I doubt that steroids would help 9 days out from onset of Springer's palsy, he is improving he states, I see no need to start steroids now, I believe the risks outweigh benefits. Antiviral treatment for Springer's palsy has been discredited in several studies. Patient wants to go home, I agree Follow-up with neurology as needed Continue aspirin and statin Thank you for letting me help with the patient's care. VALENTIN CABALLERO MD May 27, 2019 13:26
--- NOTE | 2019-05-27 13:37 | PDOC1 ---
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 Patient denies right sided hemiparesis no headache no double vision, no paresthesias reported either. Patient got concerned that he may be having a new stroke reason why he came to the ED for further evaluation and treatment. Patient is in no apparent distress at the kendrick of my visit.. his neurological status has improved according to him. No chest pain palpitations or shortness of breath has been reported . He is asking about being discharged since he feels well, plan of care discussed in detail. Past Medical History Cardiovascular: HTN, Hyperlipidemia, Other ( hypotension) Pulmonary: Pneumonia, Other ( sleep apnea) CENTRAL NERVOUS SYSTEM: CVA GI: GERD, Other (Pancreatitis, abdominal hernia) Hepatobiliary: Cholelithiasis Psych: Other ( PTSD) Infectious disease: Herpes zoster Renal/: Chronic renal insuff, Benign prostatic enlarg. Endocrine: Diabetes, Hypothyroidism Past Surgical History Past Surgical History: Appendectomy, Cholecystectomy, Cataract Removal, Hernia Repair ( abdominal times 2), Tonsillectomy, Other ( bilateral carotid endarterectomies, vein stripping) Current Problem List Problem List Problems Medical Problems: (1) Diabetes Status: Acute (2) Facial droop as late effect of cerebrovascular accident (CVA) Status: Acute (3) Hypertension Status: Acute Current Medications Current Medications Current Medications Medications (Trade) Dose Ordered Sig/Hayley Start Time Stop Time Status Last Admin Dose Admin Acetaminophen (Tylenol Supp) 650 mg PRN Q4HRS PRN 05/27/19 11:15 Acetaminophen (Tylenol) 650 mg PRN Q6HRS PRN 05/27/19 11:15 Aspirin (Aspirin Rectal Supp) 300 mg PRN DAILY PRN 05/27/19 11:15 Aspirin (Ecotrin) 325 mg DAILYWBKFT 05/27/19 12:00 Atorvastatin Calcium (Lipitor) 80 mg QHS 05/27/19 21:00 Cetirizine HCl (ZyrTEC) 10 mg DAILY 05/27/19 12:00 05/27/19 12:47 10 MG Dextrose (Dextrose 50%-Water Syringe) 12.5 gm PRN Q15MIN PRN 05/27/19 11:15 Dextrose (Iv Dextrose 5%) 250 ml PRN Q15MIN PRN 05/27/19 11:15 Fish Oil (Fish Oil) 1,000 mg DAILY 05/27/19 12:00 05/27/19 12:48 1,000 MG Fluticasone Propionate (Flonase) 2 spray PRN DAILY PRN 05/28/19 09:00 Glipizide (Glucotrol) 10 mg DAILYWBKFT 05/27/19 12:00 05/27/19 12:47 10 MG Info (CONTRAST GIVEN -- Rx MONITORING) 1 each PRN DAILY PRN 05/27/19 02:30 05/29/19 02:29 Insulin Glargine (Lantus Syringe) 20 unit QHS 05/27/19 21:00 Insulin Human Lispro (HumaLOG) 14 units TIDWMEALS 05/27/19 12:00 Iohexol (Omnipaque 350 Mg/ml) 75 ml 1X ONCE 05/27/19 02:30 05/27/19 02:31 DC 05/27/19 02:41 75 ML Labetalol HCl (Normodyne Iv Push) 10 mg PRN Q10MIN PRN 05/27/19 11:15 Lisinopril (Prinivil) 40 mg DAILY 05/28/19 09:00 UNV Metoprolol Tartrate (Lopressor) 25 mg BID 05/27/19 12:00 05/27/19 12:00 25 MG Multivitamins (Thera M Plus) 1 tab DAILY 05/27/19 12:00 05/27/19 12:47 1 TAB Non-Formulary Medication (Valacyclovir Hcl (Valtrex)) 1 tab TID 05/27/19 14:00 UNV Ondansetron HCl (Zofran) 4 mg PRN Q8HRS PRN 05/27/19 03:30 05/28/19 03:29 Oxycodone/ Acetaminophen (Percocet 5/325) 1 tab PRN Q6HRS PRN 05/27/19 11:15 Sodium Chloride 1,000 ml @ 100 mls/hr Q10H 05/27/19 11:02 Tamsulosin HCl (Flomax) 0.4 mg DAILY 05/27/19 12:00 05/27/19 12:48 0.4 MG Venlafaxine HCl (Effexor Xr) 75 mg DAILY 05/27/19 12:00 Allergies Allergies Allergies Coded Allergies Type Severity Reaction Last Updated Verified azithromycin Allergy Intermediate 04/30/16 No divalproex sodium Allergy Intermediate 04/30/16 No niacin Allergy Intermediate 04/30/16 No ROS Review of System CONSTITUTIONAL: No fever or chills EYES: No recent changes SKIN: No rash or itching CARDIOVASCULAR: No chest pain, syncope, palpitations, or edema RESPIRATORY: No SOB or cough GASTROINTESTINAL: No nausea, vomiting or abdominal pain NEUROLOGICAL: No headaches or weakness ENDOCRINE: No cold or heat intolerance GENITOURINARY: No urgency or frequency of urination MUSCULOSKELETAL: No back pain or joint pain LYMPHATICS: No enlarged lymph nodes PSYCHIATRIC: No anxiety or depression Physical Exam Physical Exam GEN.: No apparent distress. Alert and oriented. HEENT: Head is normocephalic, atraumatic NECK: Supple. LUNGS: Clear to auscultation. HEART: RRR, S1, S2 present. Peripheral pulses intact ABDOMEN: Soft, nontender. Positive bowel sounds. EXTREMITIES: Without any cyanosis. NEUROLOGIC: AAO x 3 he does have right facial droop, he seems to have bells palsy on physical exam. slight slurred speech, No motor or sensory deficits. PSYCHIATRIC: Normal affect, normal mood. SKIN: No ulcerations Vitals Vitals Vital Signs Date Time Temp Pulse Resp B/P (MAP) Pulse Ox O2 Delivery O2 Flow Rate FiO2 05/27/19 12:00 67 144/61 05/27/19 11:00 97.8 20 94 Room Air 97.8 Labs Labs Laboratory Tests Test 05/27/19 01:45 05/27/19 01:51 05/27/19 12:31 Glucose (Fingerstick) 138 mg/dL (70-99) 203 mg/dL (70-99) White Blood Count 8.4 x10^3/uL (4.0-11.0) Red Blood Count 4.45 x10^6/uL (4.30-5.70) Hemoglobin 14.3 g/dL (13.0-17.5) Hematocrit 41.9 % (39.0-53.0) Mean Corpuscular Volume 94 fL (79-100) Mean Corpuscular Hemoglobin 32 pg (25-35) Mean Corpuscular Hemoglobin Concent 34 g/dL (31-37) Red Cell Distribution Width 13.9 % (11.5-14.5) Platelet Count 129 x10^3/uL (140-400) Neutrophils (%) (Auto) 75 % (31-73) Lymphocytes (%) (Auto) 12 % (24-48) Monocytes (%) (Auto) 10 % (0-9) Eosinophils (%) (Auto) 3 % (0-3) Basophils (%) (Auto) 1 % (0-3) Neutrophils # (Auto) 6.3 x10^3/uL (1.8-7.7) Lymphocytes # (Auto) 1.0 x10^3/uL (1.0-4.8) Monocytes # (Auto) 0.9 x10^3/uL (0.0-1.1) Eosinophils # (Auto) 0.2 x10^3/uL (0.0-0.7) Basophils # (Auto) 0.1 x10^3/uL (0.0-0.2) Prothrombin Time 12.3 SEC (11.7-14.0) Prothromb Time International Ratio 0.9 (0.8-1.1) Activated Partial Thromboplast Time 28 SEC (24-38) Sodium Level 138 mmol/L (136-145) Potassium Level 4.4 mmol/L (3.5-5.1) Chloride Level 101 mmol/L (98-107) Carbon Dioxide Level 29 mmol/L (21-32) Anion Gap 8 (6-14) Blood Urea Nitrogen 39 mg/dL (8-26) Creatinine 1.9 mg/dL (0.7-1.3) Estimated GFR (Cockcroft-Gault) 35.0 BUN/Creatinine Ratio 21 (6-20) Glucose Level 154 mg/dL (70-99) Calcium Level 9.2 mg/dL (8.5-10.1) Total Bilirubin 0.5 mg/dL (0.2-1.0) Aspartate Amino Transf (AST/SGOT) 17 U/L (15-37) Alanine Aminotransferase (ALT/SGPT) 16 U/L (16-63) Alkaline Phosphatase 94 U/L (46-116) Troponin I Quantitative < 0.017 ng/mL (0.000-0.055) Total Protein 7.3 g/dL (6.4-8.2) Albumin 3.4 g/dL (3.4-5.0) Albumin/Globulin Ratio 0.9 (1.0-1.7) Laboratory Tests Test 05/27/19 01:45 05/27/19 01:51 05/27/19 12:31 Glucose (Fingerstick) 138 mg/dL (70-99) 203 mg/dL (70-99) White Blood Count 8.4 x10^3/uL (4.0-11.0) Red Blood Count 4.45 x10^6/uL (4.30-5.70) Hemoglobin 14.3 g/dL (13.0-17.5) Hematocrit 41.9 % (39.0-53.0) Mean Corpuscular Volume 94 fL (79-100) Mean Corpuscular Hemoglobin 32 pg (25-35) Mean Corpuscular Hemoglobin Concent 34 g/dL (31-37) Red Cell Distribution Width 13.9 % (11.5-14.5) Platelet Count 129 x10^3/uL (140-400) Neutrophils (%) (Auto) 75 % (31-73) Lymphocytes (%) (Auto) 12 % (24-48) Monocytes (%) (Auto) 10 % (0-9) Eosinophils (%) (Auto) 3 % (0-3) Basophils (%) (Auto) 1 % (0-3) Neutrophils # (Auto) 6.3 x10^3/uL (1.8-7.7) Lymphocytes # (Auto) 1.0 x10^3/uL (1.0-4.8) Monocytes # (Auto) 0.9 x10^3/uL (0.0-1.1) Eosinophils # (Auto) 0.2 x10^3/uL (0.0-0.7) Basophils # (Auto) 0.1 x10^3/uL (0.0-0.2) Prothrombin Time 12.3 SEC (11.7-14.0) Prothromb Time International Ratio 0.9 (0.8-1.1) Activated Partial Thromboplast Time 28 SEC (24-38) Sodium Level 138 mmol/L (136-145) Potassium Level 4.4 mmol/L (3.5-5.1) Chloride Level 101 mmol/L (98-107) Carbon Dioxide Level 29 mmol/L (21-32) Anion Gap 8 (6-14) Blood Urea Nitrogen 39 mg/dL (8-26) Creatinine 1.9 mg/dL (0.7-1.3) Estimated GFR (Cockcroft-Gault) 35.0 BUN/Creatinine Ratio 21 (6-20) Glucose Level 154 mg/dL (70-99) Calcium Level 9.2 mg/dL (8.5-10.1) Total Bilirubin 0.5 mg/dL (0.2-1.0) Aspartate Amino Transf (AST/SGOT) 17 U/L (15-37) Alanine Aminotransferase (ALT/SGPT) 16 U/L (16-63) Alkaline Phosphatase 94 U/L (46-116) Troponin I Quantitative < 0.017 ng/mL (0.000-0.055) Total Protein 7.3 g/dL (6.4-8.2) Albumin 3.4 g/dL (3.4-5.0) Albumin/Globulin Ratio 0.9 (1.0-1.7) VTE Prophylaxis Ordered VTE Prophylaxis Devices: Yes VTE Pharmacological Prophylaxi: Yes Assessment/Plan Assessment/Plan Right facial droop Slurred speech 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 DVT prophylaxis: Lovenox Problem Qualifiers (1) Hypertension: Hypertension type: essential hypertension Qualified Codes: I10 - Essential (primary) hypertension (2) Diabetes: Diabetes mellitus type: type 2 Diabetes mellitus ad terminal makeup operator insulin use: unsp ecified longterm insulin use status Diabetes mellitus complication status: with kidney complications Diabetes mellitus complication detail: with chronic kidney disease Chronic kidney disease stage: stage 2 (mild) Qualified Codes: E11.22 - Type 2 diabetes mellitus with diabetic chronic kidney disease; N18.2 - Chronic kidney disease, stage 2 (mild) RAVEN PAGAN MD May 27, 2019 13:37
--- NOTE | 2019-05-27 13:44 | PDOC3 ---
Discharge Summary Visit Information Date of Admission: May 27, 2019 Date of Discharge: May 27, 2019 Admitting Diagnosis: slurred speech Final Diagnosis Problems Medical Problems: (1) Diabetes Status: Acute (2) Facial droop as late effect of cerebrovascular accident (CVA) Status: Acute (3) Hypertension Status: Acute (4) [place] palsy Brief Hospital Course Allergies Allergies Coded Allergies Type Severity Reaction Last Updated Verified azithromycin Allergy Intermediate 04/30/16 No divalproex sodium Allergy Intermediate 04/30/16 No niacin Allergy Intermediate 04/30/16 No Vital Signs Vital Signs Date Time Temp Pulse Resp B/P (MAP) Pulse Ox O2 Delivery O2 Flow Rate FiO2 05/27/19 12:00 67 144/61 05/27/19 11:00 97.8 20 94 Room Air 97.8 Lab Results Laboratory Tests Test 05/27/19 01:45 05/27/19 01:51 05/27/19 12:31 Glucose (Fingerstick) 138 mg/dL (70-99) 203 mg/dL (70-99) White Blood Count 8.4 x10^3/uL (4.0-11.0) Red Blood Count 4.45 x10^6/uL (4.30-5.70) Hemoglobin 14.3 g/dL (13.0-17.5) Hematocrit 41.9 % (39.0-53.0) Mean Corpuscular Volume 94 fL (79-100) Mean Corpuscular Hemoglobin 32 pg (25-35) Mean Corpuscular Hemoglobin Concent 34 g/dL (31-37) Red Cell Distribution Width 13.9 % (11.5-14.5) Platelet Count 129 x10^3/uL (140-400) Neutrophils (%) (Auto) 75 % (31-73) Lymphocytes (%) (Auto) 12 % (24-48) Monocytes (%) (Auto) 10 % (0-9) Eosinophils (%) (Auto) 3 % (0-3) Basophils (%) (Auto) 1 % (0-3) Neutrophils # (Auto) 6.3 x10^3/uL (1.8-7.7) Lymphocytes # (Auto) 1.0 x10^3/uL (1.0-4.8) Monocytes # (Auto) 0.9 x10^3/uL (0.0-1.1) Eosinophils # (Auto) 0.2 x10^3/uL (0.0-0.7) Basophils # (Auto) 0.1 x10^3/uL (0.0-0.2) Prothrombin Time 12.3 SEC (11.7-14.0) Prothromb Time International Ratio 0.9 (0.8-1.1) Activated Partial Thromboplast Time 28 SEC (24-38) Sodium Level 138 mmol/L (136-145) Potassium Level 4.4 mmol/L (3.5-5.1) Chloride Level 101 mmol/L (98-107) Carbon Dioxide Level 29 mmol/L (21-32) Anion Gap 8 (6-14) Blood Urea Nitrogen 39 mg/dL (8-26) Creatinine 1.9 mg/dL (0.7-1.3) Estimated GFR (Cockcroft-Gault) 35.0 BUN/Creatinine Ratio 21 (6-20) Glucose Level 154 mg/dL (70-99) Calcium Level 9.2 mg/dL (8.5-10.1) Total Bilirubin 0.5 mg/dL (0.2-1.0) Aspartate Amino Transf (AST/SGOT) 17 U/L (15-37) Alanine Aminotransferase (ALT/SGPT) 16 U/L (16-63) Alkaline Phosphatase 94 U/L (46-116) Troponin I Quantitative < 0.017 ng/mL (0.000-0.055) Total Protein 7.3 g/dL (6.4-8.2) Albumin 3.4 g/dL (3.4-5.0) Albumin/Globulin Ratio 0.9 (1.0-1.7) Laboratory Tests Test 05/27/19 01:45 05/27/19 01:51 05/27/19 12:31 Glucose (Fingerstick) 138 mg/dL (70-99) 203 mg/dL (70-99) White Blood Count 8.4 x10^3/uL (4.0-11.0) Red Blood Count 4.45 x10^6/uL (4.30-5.70) Hemoglobin 14.3 g/dL (13.0-17.5) Hematocrit 41.9 % (39.0-53.0) Mean Corpuscular Volume 94 fL (79-100) Mean Corpuscular Hemoglobin 32 pg (25-35) Mean Corpuscular Hemoglobin Concent 34 g/dL (31-37) Red Cell Distribution Width 13.9 % (11.5-14.5) Platelet Count 129 x10^3/uL (140-400) Neutrophils (%) (Auto) 75 % (31-73) Lymphocytes (%) (Auto) 12 % (24-48) Monocytes (%) (Auto) 10 % (0-9) Eosinophils (%) (Auto) 3 % (0-3) Basophils (%) (Auto) 1 % (0-3) Neutrophils # (Auto) 6.3 x10^3/uL (1.8-7.7) Lymphocytes # (Auto) 1.0 x10^3/uL (1.0-4.8) Monocytes # (Auto) 0.9 x10^3/uL (0.0-1.1) Eosinophils # (Auto) 0.2 x10^3/uL (0.0-0.7) Basophils # (Auto) 0.1 x10^3/uL (0.0-0.2) Prothrombin Time 12.3 SEC (11.7-14.0) Prothromb Time International Ratio 0.9 (0.8-1.1) Activated Partial Thromboplast Time 28 SEC (24-38) Sodium Level 138 mmol/L (136-145) Potassium Level 4.4 mmol/L (3.5-5.1) Chloride Level 101 mmol/L (98-107) Carbon Dioxide Level 29 mmol/L (21-32) Anion Gap 8 (6-14) Blood Urea Nitrogen 39 mg/dL (8-26) Creatinine 1.9 mg/dL (0.7-1.3) Estimated GFR (Cockcroft-Gault) 35.0 BUN/Creatinine Ratio 21 (6-20) Glucose Level 154 mg/dL (70-99) Calcium Level 9.2 mg/dL (8.5-10.1) Total Bilirubin 0.5 mg/dL (0.2-1.0) Aspartate Amino Transf (AST/SGOT) 17 U/L (15-37) Alanine Aminotransferase (ALT/SGPT) 16 U/L (16-63) Alkaline Phosphatase 94 U/L (46-116) Troponin I Quantitative < 0.017 ng/mL (0.000-0.055) Total Protein 7.3 g/dL (6.4-8.2) Albumin 3.4 g/dL (3.4-5.0) Albumin/Globulin Ratio 0.9 (1.0-1.7) Brief Hospital Course Mr. Dominique is a 73 old male who presented with worsenign slurred speech and facial droop concerned about a new stroke, He was evaluated with an MRi of the head and CT angio with negative results. He was seen by Neurology as well. He was deemed appropriate for discharge with instructions to follow up with his primary care physician. His symptoms are thought to be secondary to Springer's palsy and he does not have eye involvment which would be of concerns if he was unable to close his eye. He is in good spirits to be discharged home. all concerns addressed prior to dismissal. Imaging CT head and neck Head findings: Minimal calcified plaque cavernous carotid arteries. No stenosis, thrombus, occlusion or aneurysm. IMPRESSION: 1. No large vessel occlusion. 2. Plaquing of the cervical carotid arteries without significant stenosis or occlusion. Short segment nonocclusive dissection flap of the left external carotid artery. No dissection of the common or internal carotid arteries or vertebral arteries. Electronically signed by: Damaris Kim MD (05/27/2019 3:02 AM) [facility] DICTATED and SIGNED BY: DAMARIS KIM MD DATE: 05/27/19301 MRI head Impression: 1. There is no evidence of recent infarct or intracranial mass effect. There are old lacunar infarcts as stated. There is other mild T2 and FLAIR hyperintense signal abnormality of the supratentorial parenchyma probably due to to chronic microvascular ischemic disease. There is mild supratentorial atrophy. 2. There is paranasal sinus mucosal thickening as stated greatest of the ethmoid air cells. Electronically signed by: Derek Barbosa MD (05/27/2019 12:31 PM) [facility] Assessment Assessment [place] palsy HTN DM type 2 Dyslipidemia History of CVA Peripheral vascular disease status post carotid endarterectomy Discharge Information Condition at Discharge: Improved Follow Up: Weeks Disposition/Orders: D/C to Home Scheduled Amoxicillin/Potassium Clav (Augmentin 875-125 Tablet) 1 Each Tablet, 1 TAB PO BID, #14 Prescribed by: LAURA GIRALDO MD on 09/20/18 025 Last Action: HELD on 05/27/191105 by RAVEN PAGAN MD Cetirizine Hcl (Cetirizine Hcl) 10 Mg Tablet, 1 TAB PO PRN DAILY, #30 Ref 5 (Reported) Entered as Reported by: Moise Carter on 12/28/16 0350 Last Action: Continued on 05/27/191106 by RAVEN PAGAN MD Glipizide (Glipizide) 5 Mg Tablet, 10 MG PO DAILYWBKFT, #60 Ref 3 (Reported) Entered as Reported by: JUAN LUIS CARDENAS on 06/18/141523 Last Action: Continued on 05/27/191106 by RAVEN PAGAN MD Insulin Aspart (Novolog) 100 Unit/1 Ml Cartridge, 14 UNIT SQ DAILYBFRSUP, (Reported) Entered as Reported by: JUAN LUIS CARDENAS on 06/18/141523 Last Action: Converted on 05/27/191106 by RAVEN PAGAN MD Insulin Glargine,Hum.rec.anlog (Lantus Solostar) 100 Unit/1 Ml Insuln.pen, 20 UN IT SQ QHS, #15 Ref 5 (Reported) Entered as Reported by: JUAN LUIS CARDENAS on 06/18/141523 Last Action: Converted on 05/27/191106 by RAVEN PAGAN MD Lisinopril (Lisinopril) 40 Mg Tablet, 1 TAB PO DAILY, #30 Ref 5 (Reported) Entered as Reported by: JUAN LUIS CARDENAS on 06/18/141523 Last Action: Continued on 05/27/191106 by RAVEN PAGAN MD Metoprolol Tartrate (Metoprolol Tartrate) 25 Mg Tablet, 1 TAB PO BID, #180 Ref 1 (Reported) Entered as Reported by: JUAN LUIS CARDENAS on 06/18/141523 Last Action: Continued on 05/27/191106 by RAVEN PAGAN MD Multivitamin (Multivitamins) 1 Each Tablet, 1 TAB PO DAILY, #90 Ref 3 (Reported) Entered as Reported by: JUAN LUIS CARDENAS on 2/1/15 1524 Last Action: Converted on 05/27/191106 by RAVEN PAGAN MD [place]-3 Fatty Acids (Fish Oil) 500 Mg Capsule, 1,000 MG PO DAILY, (Reported) Entered as Reported by: JUAN LUIS CARDENAS on 06/18/14 1524 Last Action: Converted on 05/27/191106 by RAVEN PAGAN MD Oxycodone/Apap 5-325 (Percocet 5-325 Mg Tablet ) 1 Each Tablet, 1-2 TAB PO Q4- 6HRS, #14 Prescribed by: LEONELA HENDERSON D.O. on 04/30/16 1641 Last Action: Continued on 05/27/191106 by RAVEN PAGAN MD Simvastatin (Simvastatin) 40 Mg Tablet, 40 MG PO HS for FOR CHOLESTEROL, #30 Ref 0 (Reported) Entered as Reported by: Moise Carter on 12/28/16349 Last Action: HELD on 05/27/191105 by RAVEN PAGAN MD Tamsulosin Hcl (Flomax) 0.4 Mg Cap.er.24h, 1 CAP PO PRN DAILY, #30 Ref 11 (Reported) Entered as Reported by: Moise Carter on 12/28/16349 Last Action: Continued on 05/27/191106 by RAVEN PAGAN MD Valacyclovir Hcl (Valtrex) 1,000 Mg Tablet, 1 TAB PO TID for Shingles, #21 Prescribed by: SUE AWAN D.O. on 12/08/15 1802 Last Action: Converted on 05/27/191106 by RAVEN PAGAN MD Venlafaxine Hcl (Venlafaxine Hcl) 75 Mg Tablet, 1 TAB PO PRN DAILY, #60 Ref 1 (Reported) Entered as Reported by: Moise Carter on 12/28/16349 Last Action: Continued on 05/27/191106 by RAVEN PAGAN MD [gilbert] 1 TAB, DAILY, (Reported) Entered as Reported by: Moise Carter on 12/28/16349 Scheduled PRN Fluticasone Propionate (Flonase Allergy Relief) 9.9 Ml Lizella.susp, 2 SPRAYS NS DAILY PRN for CONGESTION, #1 Prescribed by: SHANTEL TORRES DMaye on 07/03/16 0015 Last Action: Converted on 05/27/19 1107 by RAVEN PAGAN MD Discontinued Medications Aspirin (Aspirin) 81 Mg Tab.chew, 1 TAB PO DAILY, #30 Ref 3 (Reported) Entered as Reported by: JUAN LUIS CARDENAS on 06/18/141523 Last Action: Discontinued on 05/27/19927 by FABIEN GOODMAN Cyclobenzaprine Hcl (Cyclobenzaprine Hcl) 10 Mg Tablet, 1 TAB PO PRN DAILY, #30 (Reported) Entered as Reported by: Moise Carter on 12/28/16349 Last Action: Discontinued on 05/27/19927 by FABIEN GOODMAN Glipizide (Glipizide) 5 Mg Tablet, 5 MG PO DAILYBFRSUP, (Reported) Entered as Reported by: Moise Carter on 12/28/16334 Last Action: Discontinued on 05/27/19927 by FABIEN GOODMAN Prazosin Hcl (Prazosin Hcl) 2 Mg Capsule, 4 MG PO QHS, #30 Ref 2 (Reported) Entered as Reported by: JUAN LUIS CARDENAS on 06/18/141523 Last Action: Discontinued on 05/27/19927 by FABIEN GOODMAN Sennosides/Docusate Sodium (Senokot-S Tablet) 1 Each Tablet, 1 TAB PO PRN BID, #30 (Reported) Entered as Reported by: Moise Carter on 12/28/16349 Last Action: Discontinued on 05/27/19927 by RAVEN OSWALD MD May 27, 2019 13:44
[2019-05-27] MEDS ORDERED: VALACYCLOVIR HCL PO SCH (14:00)
--- NOTE | 2019-05-27 16:19 | NUR ---
Discharge Note: EM WEISS [address] Discharge instructions and discharge home medications reviewed with patient and a copy given. All questions have been answered and understanding verbalized. The following instructions and handouts were given: Take home meds as directed. Springer's palsy, stroke prevention and diabetes handout. Follow up with neurology as needed Follow up with PCP in a week To follow up at out patient rehab for physical therapy, calling card given to the patient. Discontinued lines and drains: peripheral IV intact, patient tolerated removal, no complications noted Patient discharged to home with self care. Addendum: 05/27/19 at 1650 by FABIEN GOODMAN RN Patient instructed to call this RN prior to discharge once family member arrives so staff member can walk him downstairs. Patient left without notifying staff at around 1600.
[2019-05-27] MEDS ORDERED: INSULIN GLARGINE SYRINGE. SQ SCH (21:00)
[2019-05-27] MEDS ORDERED: ATORVASTATIN CALCIUM 40 MG TABLET. PO SCH (21:00)
[2019-05-28] MEDS ORDERED: LISINOPRIL 20 MG TABLET PO SCH (09:00)
[2019-05-28] MEDS ORDERED: FLUTICASONE 50MCG/NASAL SPRAY 16GM BOTTLE. NS PRN (09:00)
== END 2019-05-27 16:23 | disposition home or self-care (01) | DRG 74 ==
LOC: ER 01:35 → 6 SOUTH 03:22
PROVIDERS: ADMIT Internal Medicine; ATTEND Internal Medicine
DX: G51.0 Bell's palsy (principal); G89.29 Other chronic pain; K21.9 Gastro-esophageal reflux disease without esophagitis; E78.00 Pure hypercholesterolemia, unspecified; E03.9 Hypothyroidism, unspecified; N40.0 Benign prostatic hyperplasia without lower urinary tract symptoms; E78.5 Hyperlipidemia, unspecified; F43.10 Post-traumatic stress disorder, unspecified; E11.51 Type 2 diabetes mellitus with diabetic peripheral angiopathy without gangrene; E11.22 Type 2 diabetes mellitus with diabetic chronic kidney disease; I12.9 Hypertensive chronic kidney disease with stage 1 through stage 4 chronic kidney disease, or unspecified chronic kidney disease; N18.2 Chronic kidney disease, stage 2 (mild); J32.2 Chronic ethmoidal sinusitis; I69.392 Facial weakness following cerebral infarction; Z90.49 Acquired absence of other specified parts of digestive tract; Z79.4 Long term (current) use of insulin; Z88.8 Allergy status to other drugs, medicaments and biological substances
CPT/HCPCS: 36415; 70450; 70496; 70498; 70551; 80053; 82962; 84484; 85025; 85610; 85730; 93005; J1815; J7030; Q9967; 92610; 99291-25; G0378

== ENCOUNTER 2019-07-08 10:18 | Emergency (ER) | payer MEDICARE ==
[~2019-07-08] VITALS: Ht 172.7 cm; Wt 90.9 kg
[2019-07-08 10:48] VITALS: BP 139/61
[2019-07-08] MEDS ORDERED: PANT40TA77 PO (11:10)
--- NOTE | 2019-07-08 11:12 | PHYS DOC ---
Past Medical History Past Medical History: Diabetes-Type II, Gallstones, GERD, High Cholesterol, Hypertension, Hypothyroid, Pancreatitis, Renal Disease, Renal Failure, Sciatica, Stroke, Other Additional Past Medical Histor: PTSD;CHRONIC BACK PAIN,ENLARGED PROSTATE,CKD,abd hernia Past Surgical History: Appendectomy, Cholecystectomy, Tonsillectomy, Other Additional Past Surgical Histo: sinus sx;abdominal,HERNIA X2,L ENDARECTOMY,BILATERAL LEG VEIN STRIPPING Smoking Status: Current Every Day Smoker Additional Information: > 1 PPD Alcohol Use: Occasionally Drug Use: None Adult General Chief Complaint Chief Complaint: MULTIPLE COMPLAINTS HPI HPI 73-year-old male significant history of hypertension, hyperlipidemia, diabetes mellitus, who presents for evaluation of sore throat over the last several days or so. He states that his sore throat is likely secondary to reflux. He states that his reflux typically worse when he takes his Viagra. He also reports bilateral otalgia. No URI symptoms otherwise. No chest pain, dyspnea, headache or vision changes, focal numbness or paresthesia. No other aggravating or alleviating factors. Review of Systems Review of Systems General: No fevers, chills. Eyes: No blurred vision, diplopia. ENT: No nasal congestion. Reports bilateral otalgia, sore throat. CV: No chest pain, edema. Resp: No shortness of breath, cough. GI: No abdominal pain, nausea, vomiting. : No dysuria, hematuria. Neuro: No headache, dizziness, weakness. Musculoskeletal: No myalgia, arthralgia. Skin: No acute rash, lesion. Allergies Allergies Allergies Coded Allergies Type Severity Reaction Last Updated Verified azithromycin Allergy Intermediate 04/30/16 No divalproex sodium Allergy Intermediate 04/30/16 No niacin Allergy Intermediate 04/30/16 No Physical Exam Physical Exam Gen: NAD. Well nourished. Head: NC/AT Eyes: No scleral icterus. No conjunctival injection. ENT: MMM. Posterior OP clear. Bilateral TMs clear. Uvula midline. No tonsillar hypertrophy or asymmetry. Neck: Supple. NT. CV: RRR. Peripheral pulses intact. Resp: CTAB. Abd: Soft. NT. ND. No flank percussion tenderness. MSK: No peripheral cyanosis. No edema. Neuro: Awake and alert. Skin: Warm. Dry. No acute rash. Psych: Appropriate mood & affect. Current Patient Data Vital Signs Vital Signs Date Time Temp Pulse Resp B/P (MAP) Pulse Ox O2 Delivery O2 Flow Rate FiO2 07/08/19 10:48 97.5 73 20 139/61 (87) 95 Room Air 97.5 EKG EKG EKG at 1054. Sinus rhythm. Heart rate 70. Nonspecific ST changes. No STEMI. Interpreted by me. Radiology/Procedures Radiology/Procedures [] Course & Med Decision Making Course & Med Decision Making Pertinent Labs and Imaging studies reviewed. (See chart for details) In summary, 73-year-old male who presents for evaluation of sore throat and bilateral otalgia. Tympanic membranes were clear, with otherwise unremarkable ENT, cardiorespiratory and abdominal examination. The patient is well-appearing and nontoxic. The patient was discharged home with prescription for pantoprazole 40 mg daily with outpatient PMD follow-up. Recommended Tylenol as needed for otalgia. Return precautions given. Dragon Disclaimer Dragon Disclaimer This electronic medical record was generated, in whole or in part, using a voice recognition dictation system. Departure Departure Impression: Primary Impression: Otalgia of both ears Additional Impression: GERD (gastroesophageal reflux disease) Disposition: HOME, SELF-CARE Condition: STABLE Referrals: UNKNOWN PCP NAME (PCP) Patient Instructions: Gastroesophageal Reflux Disease, Adult, [id number], [place]-Brief Scripts Pantoprazole Sodium (PROTONIX ) 40 Mg Tablet. 40 MG PO DAILYAC for GERD, #30 TAB Prov: YEHUDA LIRA DO 07/08/19 Problem Qualifiers YEHUDA LIRA DO Jul 08, 2019 11:12
--- NOTE | 2019-07-08 22:42 | EKG ---
[facility] [address] [place] [address] Test Date: 2019-07-08 Test Time: 10:54:30 Pat Name: EM WEISS Department: Room: Gender: M Mail Teller: : 1945 Requested By: YEHUDA LIRA Order Number: [id number] Reading MD: Measurements Intervals [place] Rate: 70 P: [place]: QRS: -55 QRSD: 86 T: -25 QT: 402 QTc: 437 Interpretive Statements ATRIAL FLUTTER ABNORMAL LEFT AXIS DEVIATION R-S TRANSITION ZONE IN V LEADS DISPLACED TO THE RIGHT LEFT ANTERIOR FASCICULAR BLOCK LVH WITH REPOLARIZATION ABNORMALITY QRS(T) CONTOUR ABNORMALITY CONSIDER ANTEROSEPTAL MYOCARDIAL DAMAGE ABNORMAL ECG RI6.01 No previous ECG available for comparison
== END 2019-07-08 11:29 | disposition home or self-care (01) ==
LOC: ER 10:18
DX: H92.03 Otalgia, bilateral (principal); K21.9 Gastro-esophageal reflux disease without esophagitis; E11.22 Type 2 diabetes mellitus with diabetic chronic kidney disease; I12.9 Hypertensive chronic kidney disease with stage 1 through stage 4 chronic kidney disease, or unspecified chronic kidney disease; N18.9 Chronic kidney disease, unspecified; J02.9 Acute pharyngitis, unspecified; E78.00 Pure hypercholesterolemia, unspecified; E03.9 Hypothyroidism, unspecified; G89.29 Other chronic pain; Z86.73 Personal history of transient ischemic attack (TIA), and cerebral infarction without residual deficits; Z90.89 Acquired absence of other organs; Z90.49 Acquired absence of other specified parts of digestive tract; Z98.890 Other specified postprocedural states; F17.200 Nicotine dependence, unspecified, uncomplicated; Z88.1 Allergy status to other antibiotic agents; Z88.8 Allergy status to other drugs, medicaments and biological substances
CPT/HCPCS: 93005; 99283

== ENCOUNTER 2020-03-24 17:21 | Emergency (ER) | payer MEDICARE ==
[~2020-03-24 17:21] MED LIST changes: +MULT-445 PO; -MULT1TAB52 PO; +PANT40TA77 PO; +PREG-9 PO; -PREG75CA PO
== END 2020-03-24 18:37 | disposition left against medical advice (07) ==
LOC: ER 17:21
DX: R30.0 Dysuria (principal); R35.0 Frequency of micturition; Z53.21 Procedure and treatment not carried out due to patient leaving prior to being seen by health care provider

== ENCOUNTER 2020-07-21 21:29 | Emergency (ER) | payer MEDICARE ==
[~2020-07-21] VITALS: Ht 170.2 cm; Wt 90.0 kg
[~2020-07-21 21:29] MED LIST changes: +ASPI-886 PO
[2020-07-21 21:43] LABS: BILIRUBIN,URINE NEGATIVE (NEG); CLARITY,URINE CLEAR; COLOR,URINE YELLOW; NITRITE,URINE NEGATIVE (NEG); PROTEIN,URINE 100 mg/dL (NEG-TRACE); UROBILINOGEN,URINE 0.2 mg/dL (0.2 mg/dL)
[2020-07-21 21:52] LABS: RBC,URINE 0 /HPF (0-2); WBC,URINE 0 /HPF (0-4)
[2020-07-21 21:53] LABS: BACTERIA,URINE 0 /HPF (0-FEW)
[2020-07-21 22:47] LABS: BASO # 0.1 x10^3/uL (0.0-0.2); BASO % 1 % (0-3); EOS # 0.2 x10^3/uL (0.0-0.7); EOS % 2 % (0-3); HEMATOCRIT 39.8 % (39.0-53.0); HEMOGLOBIN 13.5 g/dL (13.0-17.5); LYMPH # 1.4 x10^3/uL (1.0-4.8); LYMPH % 16 % (24-48); MEAN CORPUSCULAR HEMOGLOBIN 31 pg (25-35); MEAN CORPUSCULAR HGB CONC 34 g/dL (31-37); MEAN CORPUSCULAR VOLUME 93 fL (79-100); MONO # 0.9 x10^3/uL (0.0-1.1); MONO % 10 % (0-9); NEUT # 6.3 x10^3/uL (1.8-7.7); NEUT % 71 % (31-73); PLATELET COUNT 139 x10^3/uL (140-400); RED CELL DISTRIBUTION WIDTH 14.2 % (11.5-14.5); WHITE BLOOD COUNT 8.9 x10^3/uL (4.0-11.0)
[2020-07-21 22:57] LABS: CALCIUM 9.3 mg/dL (8.5-10.1); CREATININE 1.9 mg/dL (0.7-1.3); GFR 34.9; POTASSIUM 4.6 mmol/L (3.5-5.1)
[2020-07-21] MEDS ORDERED: LABETALOL 20 MG/4 ML DISP.SYRIN. IVP ONE (23:00)
[2020-07-21 23:03] LABS: ALBUMIN/GLOBULIN RATIO 0.7 (1.0-1.7); TOTAL BILIRUBIN 0.6 mg/dL (0.2-1.0); TOTAL PROTEIN 7.2 g/dL (6.4-8.2)
--- NOTE | 2020-07-21 23:27 | PHYS DOC ---
Past Medical History Past Medical History: Diabetes-Type II, Gallstones, GERD, High Cholesterol, Hypertension, Hypothyroid, Pancreatitis, Renal Disease, Renal Failure, Sciatica, Stroke, Other Additional Past Medical Histor: PTSD;CHRONIC BACK PAIN,ENLARGED PROSTATE,CKD,abd hernia Past Surgical History: No Surgical History, Appendectomy, Cholecystectomy, Tonsillectomy, Other Additional Past Surgical Histo: sinus sx;abdominal,HERNIA X2,L ENDARECTOMY,BILATERAL LEG VEIN STRIPPING Smoking Status: Current Every Day Smoker Alcohol Use: None Drug Use: None Adult General Chief Complaint Chief Complaint: URINARY FREQUENCY HPI HPI Patient is a 74 year old male with a complicated past medical history now presenting the emergency department complaining of urinary frequency and incontinence. Patient states that over the last week he has noted increasing s ensation of difficulty urinating. Patient states over the last 2 days he has been having difficulty getting to the bathroom. Patient states he been using diapers because he gets a sensation to urinate and then will be able control noted that he will urinate before he is ready. Patient states he had this problem in the past and has seen a urologist but has not seen urologist recently. Denies any pain in the area. Denies any fever, chills, nausea, vomiting, dizziness or lightheadedness Review of Systems Review of Systems Constitutional: Denies fever or chills [] Eyes: Denies change in visual acuity, redness, or eye pain [] HENT: Denies nasal congestion or sore throat [] Respiratory: Denies cough or shortness of breath [] Cardiovascular: No additional information not addressed in HPI [] GI: Denies abdominal pain, nausea, vomiting, bloody stools or diarrhea [] : Denies dysuria or hematuria [] Musculoskeletal: Denies back pain or joint pain [] Integument: Denies rash or skin lesions [] Neurologic: Denies headache, focal weakness or sensory changes [] Endocrine: Denies polyuria or polydipsia [] All other systems were reviewed and found to be within normal limits, except as documented in this note. Current Medications Current Medications Current Medications Medications (Trade) Dose Ordered Sig/Hayley Start Time Stop Time Status Last Admin Dose Admin Acetaminophen (Tylenol) 1,000 mg 1X ONCE 07/21/20 23:30 07/21/20 23:31 UNV Labetalol HCl (Normodyne Iv Push) 10 mg 1X ONCE 3/6/21 23:00 07/21/20 23:01 DC 07/21/20 23:07 10 MG Allergies Allergies Allergies Coded Allergies Type Severity Reaction Last Updated Verified azithromycin Allergy Intermediate 04/30/16 No divalproex sodium Allergy Intermediate 04/30/16 No niacin Allergy Intermediate 04/30/16 No Physical Exam Physical Exam Constitutional: Well developed, well nourished, no acute distress, non-toxic appearance. [] HENT: Normocephalic, atraumatic, bilateral external ears normal, oropharynx moist, no oral exudates, nose normal. [] Eyes: PERRLA, EOMI, conjunctiva normal, no discharge. [] Neck: Normal range of motion, no tenderness, supple, no stridor. [] Cardiovascular:Heart rate regular rhythm, no murmur [] Lungs & Thorax: Bilateral breath sounds clear to auscultation [] Abdomen: Bowel sounds normal, soft, no tenderness, no masses, no pulsatile masses. [] Skin: Warm, dry, no erythema, no rash. [] Back: No tenderness, no CVA tenderness. [] Extremities: No tenderness, no cyanosis, no clubbing, ROM intact, no edema. [] Neurologic: Alert and oriented X 3, normal motor function, normal sensory function, no focal deficits noted. [] Psychologic: Affect normal, judgement normal, mood normal. [] Current Patient Data Vital Signs Vital Signs Date Time Temp Pulse Resp B/P (MAP) Pulse Ox O2 Delivery O2 Flow Rate FiO2 07/21/20 23:07 76 192/92 07/21/20 21:30 98.2 20 95 Room Air 98.2 Lab Values Laboratory Tests Test 07/21/20 21:31 07/21/20 22:20 Urine Collection Type Void Urine Color Yellow Urine Clarity Clear Urine pH 7.0 (<5.0-8.0) Urine Specific [place] 1.015 (1.000-1.030) Urine Protein 100 mg/dL (NEG-TRACE) Urine Glucose (UA) 500 mg/dL (NEG) Urine Ketones (Stick) Negative mg/dL (NEG) Urine Blood Negative (NEG) Urine Nitrite Negative (NEG) Urine Bilirubin Negative (NEG) Urine Urobilinogen Dipstick 0.2 mg/dL (0.2 mg/dL) Urine Leukocyte Esterase Negative (NEG) Urine RBC 0 /HPF (0-2) Urine WBC 0 /HPF (0-4) Urine Squamous Epithelial Cells Few /LPF Urine Bacteria 0 /HPF (0-FEW) White Blood Count 8.9 x10^3/uL (4.0-11.0) Red Blood Count 4.30 x10^6/uL (4.30-5.70) Hemoglobin 13.5 g/dL (13.0-17.5) Hematocrit 39.8 % (39.0-53.0) Mean Corpuscular Volume 93 fL (79-100) Mean Corpuscular Hemoglobin 31 pg (25-35) Mean Corpuscular Hemoglobin Concent 34 g/dL (31-37) Red Cell Distribution Width 14.2 % (11.5-14.5) Platelet Count 139 x10^3/uL (140-400) L Neutrophils (%) (Auto) 71 % (31-73) Lymphocytes (%) (Auto) 16 % (24-48) L Monocytes (%) (Auto) 10 % (0-9) H Eosinophils (%) (Auto) 2 % (0-3) Basophils (%) (Auto) 1 % (0-3) Neutrophils # (Auto) 6.3 x10^3/uL (1.8-7.7) Lymphocytes # (Auto) 1.4 x10^3/uL (1.0-4.8) Monocytes # (Auto) 0.9 x10^3/uL (0.0-1.1) Eosinophils # (Auto) 0.2 x10^3/uL (0.0-0.7) Basophils # (Auto) 0.1 x10^3/uL (0.0-0.2) Sodium Level 138 mmol/L (136-145) Potassium Level 4.6 mmol/L (3.5-5.1) Chloride Level 101 mmol/L (98-107) Carbon Dioxide Level 30 mmol/L (21-32) Anion Gap 7 (6-14) Blood Urea Nitrogen 32 mg/dL (8-26) H Creatinine 1.9 mg/dL (0.7-1.3) H Estimated GFR (Cockcroft-Gault) 34.9 BUN/Creatinine Ratio 17 (6-20) Glucose Level 188 mg/dL (70-99) H Calcium Level 9.3 mg/dL (8.5-10.1) Total Bilirubin 0.6 mg/dL (0.2-1.0) Aspartate Amino Transferase (AST) 19 U/L (15-37) Alanine Aminotransferase (ALT) 26 U/L (16-63) Alkaline Phosphatase 107 U/L (46-116) Total Protein 7.2 g/dL (6.4-8.2) Albumin 3.0 g/dL (3.4-5.0) L Albumin/Globulin Ratio 0.7 (1.0-1.7) L Laboratory Tests 07/21/20 22:20 Laboratory Tests 07/21/20 22:20 EKG EKG [] Radiology/Procedures Radiology/Procedures [] Course & Med Decision Making Course & Med Decision Making Pertinent Labs and Imaging studies reviewed. (See chart for details) 74M presenting the emergency department nonspecific urinary incontinence. Patient the patient's explanations as if this is a chronic issue. Feel the issu es will obtain labs to make sure there is no evidence of underlying infection. Bladder scan does demonstrate 200 cc and there is no evidence of peripheral incontinence. Dragon Disclaimer Dragon Disclaimer This electronic medical record was generated, in whole or in part, using a voice recognition dictation system. Departure Departure Impression: Primary Impression: Urinary incontinence Disposition: 01 DC HOME SELF CARE/HOMELESS Condition: GOOD Referrals: UNKNOWN PCP NAME (PCP) Patient Instructions: Urinary Incontinence-Brief Additional Instructions: EMERGENCY DEPARTMENT GENERAL DISCHARGE INSTRUCTIONS Thank you for coming to [facility] Emergency Department (ED) today and trusting us with you care. We trust that you had a positive experience in our Emergency Department. If you wish to speak to the department management, you may call the Director at [phone]. YOUR FOLLOW UP INSTRUCTIONS ARE FOLLOWS: 1. Do you have a private Doctor? If you do not have a private doctor, please ask for a resource list of physicians or clinics that may be able to assist you with follow up care. 2. The Emergency Physicain has interpreted your x-rays. The X-Ray specialist will also review them. If there is a change in the findings, you will be notified in 48 hours when at all possible. 3. A lab test or culture has been done, your results will be reviewed and you will be notified if you need a change in treatment. ADDITIONAL INSTRUCTIONS AND INFORMATION: 1. Your care today has been supervised by a physician who is specially trained in emergency care. Many problems require more than one evaluation for a complete diagnosis and treatment. We recommend that you schedule your follow up appointment as recommended to ensure complete treatment of you illness or injury. If you are unable to obtain follow up care and continue to have a problem, or if your condition worsens, we recommend that you return to the ED. 2. We are not able to safely determine your condition over the phone nor are we able to give sound medical advice over the phone. For these safety reasons, if you call for medical advice we will ask you to come to the ED for further evaluation. 3. If you have any questions regarding these discharge instructions please call the ED at [phone]. SAFETY INFORMATION: In the interest of safety, wellness, and injury prevention; we encourage you to wear your sealbelt, if you smoke; quite smoking, and we encourage family to use a protective helmet for bicycling and other sporting events that present an increased risk for head injury. IF YOUR SYMPTOMS WORSEN OR NEW SYMPTOMS DEVELOP, OR YOU HAVE CONCERNS ABOUT YOUR CONDITION; OR IF YOUR CONDITION WORSENS WHILE YOU ARE WAITING FOR YOUR FOLLOW UP A PPOINTMENT; EITHER CONTACT YOUR PRIMARY CARE DOCTOR, THE PHYSICIAN WHOSE NAME AND NUMBER YOU WERE Narendra NIEVES, OR RETURN TO THE ED IMMEDIATELY. JULIA GARZA MD Jul 21, 2020 23:27
[2020-07-21] MEDS ORDERED: ACETAMINOPHEN 500 MG TABLET PO ONE (23:30)
[2020-07-21 23:36] VITALS: BP 169/78
== END 2020-07-21 23:45 | disposition home or self-care (01) ==
LOC: ER 21:29
DX: R32 Unspecified urinary incontinence (principal); R35.0 Frequency of micturition; E78.00 Pure hypercholesterolemia, unspecified; K21.9 Gastro-esophageal reflux disease without esophagitis; I10 Essential (primary) hypertension; E03.9 Hypothyroidism, unspecified; E11.22 Type 2 diabetes mellitus with diabetic chronic kidney disease; I12.9 Hypertensive chronic kidney disease with stage 1 through stage 4 chronic kidney disease, or unspecified chronic kidney disease; N18.9 Chronic kidney disease, unspecified; G89.29 Other chronic pain; Z86.73 Personal history of transient ischemic attack (TIA), and cerebral infarction without residual deficits; F17.200 Nicotine dependence, unspecified, uncomplicated; Z90.89 Acquired absence of other organs; Z90.49 Acquired absence of other specified parts of digestive tract; Z88.1 Allergy status to other antibiotic agents; Z88.8 Allergy status to other drugs, medicaments and biological substances
CPT/HCPCS: 36415; 80053; 81001; 85025; 96374; 99285; J3490

== ENCOUNTER 2020-07-23 12:56 | Emergency (ER) | payer MEDICARE ==
[~2020-07-23] VITALS: Ht 172.7 cm; Wt 118.5 kg
[2020-07-23 13:42] VITALS: BP 168/72
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
[2020-07-23] MEDS: ONDANSETRON ODT 4 MG TAB.RAPDIS. PO ONE (17:25)
[2020-07-23] MEDS: HYDROcodone/APAP 5/325MG 1 TAB TABLET PO ONE (17:25)
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
[2020-07-23] MEDS: KETOROLAC 60 MG/2 ML VIAL. IM ONE (17:27)
[2020-07-23] MEDS ORDERED: HYDR-2761 PO (18:27)
[2020-07-23] MEDS ORDERED: IBUP-1007 PO (18:27)
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
== END 2020-07-23 18:42 | disposition home or self-care (01) ==
LOC: ER 12:56
DX: S80.12XA Contusion of left lower leg, initial encounter (principal); M25.572 Pain in left ankle and joints of left foot; K21.9 Gastro-esophageal reflux disease without esophagitis; E78.00 Pure hypercholesterolemia, unspecified; I10 Essential (primary) hypertension; E03.9 Hypothyroidism, unspecified; G89.29 Other chronic pain; I12.9 Hypertensive chronic kidney disease with stage 1 through stage 4 chronic kidney disease, or unspecified chronic kidney disease; E11.22 Type 2 diabetes mellitus with diabetic chronic kidney disease; N18.9 Chronic kidney disease, unspecified; F43.10 Post-traumatic stress disorder, unspecified; F17.200 Nicotine dependence, unspecified, uncomplicated; Z90.89 Acquired absence of other organs; Z90.49 Acquired absence of other specified parts of digestive tract; Z98.890 Other specified postprocedural states; Z86.73 Personal history of transient ischemic attack (TIA), and cerebral infarction without residual deficits; Z88.1 Allergy status to other antibiotic agents; Z88.8 Allergy status to other drugs, medicaments and biological substances; V49.49XA Driver injured in collision with other motor vehicles in traffic accident, initial encounter; Y92.488 Other paved roadways as the place of occurrence of the external cause; Y93.89 Activity, other specified; Y99.8 Other external cause status
CPT/HCPCS: 73590; 73610; 73630; 96372; 99284; J1885; 99283

== ENCOUNTER 2020-08-10 02:39 | Emergency (ER) | payer OTHER, MEDICARE ==
[~2020-08-10] VITALS: Ht 170.2 cm; Wt 86.4 kg
[~2020-08-10 02:39] MED LIST changes: +HYDR-2761 PO; +IBUP-1007 PO
[2020-08-10 04:13] LABS: BILIRUBIN,URINE NEGATIVE (NEG); CLARITY,URINE CLEAR; COLOR,URINE YELLOW; NITRITE,URINE NEGATIVE (NEG); PROTEIN,URINE 100 mg/dL (NEG-TRACE); UROBILINOGEN,URINE 0.2 mg/dL (0.2 mg/dL)
[2020-08-10 04:20] LABS: BACTERIA,URINE 0 /HPF (0-FEW); RBC,URINE OCC /HPF (0-2); WBC,URINE OCC /HPF (0-4)
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
[2020-08-10] MEDS ORDERED: MUPI22OI2 TP (04:53)
[2020-08-10] MEDS ORDERED: OXYC1TAB15 PO (04:53)
[2020-08-10 05:03] VITALS: BP 173/86
[2020-08-10] MEDS ORDERED: FLUCONAZOLE 100 MG TABLET. PO ONE (05:15)
== END 2020-08-10 05:16 | disposition home or self-care (01) ==
LOC: ER 02:39
DX: M50.20 Other cervical disc displacement, unspecified cervical region (principal); K21.9 Gastro-esophageal reflux disease without esophagitis; E78.00 Pure hypercholesterolemia, unspecified; E03.9 Hypothyroidism, unspecified; G89.29 Other chronic pain; E11.22 Type 2 diabetes mellitus with diabetic chronic kidney disease; I12.9 Hypertensive chronic kidney disease with stage 1 through stage 4 chronic kidney disease, or unspecified chronic kidney disease; N18.9 Chronic kidney disease, unspecified; F17.200 Nicotine dependence, unspecified, uncomplicated; Z86.73 Personal history of transient ischemic attack (TIA), and cerebral infarction without residual deficits; Z90.49 Acquired absence of other specified parts of digestive tract; Z90.89 Acquired absence of other organs; Z88.1 Allergy status to other antibiotic agents; Z88.8 Allergy status to other drugs, medicaments and biological substances
CPT/HCPCS: 70450; 72125; 81001; 99285-25

== ENCOUNTER 2021-04-04 22:42 | Emergency (ER) | payer MEDICARE, OTHER ==
[~2021-04-04] VITALS: Ht 170.2 cm; Wt 69.6 kg
[~2021-04-04 22:42] MED LIST changes: +CYCL10TA19 PO; -CYCL10TA2 PO; +MUPI22OI2 TP; -OMEP40CA45 PO; +OMEP40CA7 PO
--- NOTE | 2021-04-04 23:20 | ED.ADGEN ---
Past Medical History Past Medical History: Diabetes-Type II, Gallstones, GERD, High Cholesterol, Hypertension, Hypothyroid, Pancreatitis, Renal Disease, Renal Failure, Sciatica, Stroke, Other Additional Past Medical Histor: PTSD;CHRONIC BACK PAIN,ENLARGED PROSTATE,CKD,abd hernia Past Surgical History: Appendectomy, Cholecystectomy, Other Additional Past Surgical Histo: CAROTID Smoking Status: Current Every Day Smoker Alcohol Use: None Drug Use: None General Adult EDM: Chief Complaint: CHEST PAIN HPI: HPI: Patient is a 75 year old male coming in for pressure-like chest pain that radiates to his neck and right arm. Patient states the pain has been happening for the past 5 days in the evenings and at night. Patient states he takes Tylenol falls asleep and the pain is gone the morning. Denies any associated symptoms. Has not had this kind of pain before. Denies any cardiac history but is a history of poorly controlled hypertension and diabetes. He states his morning glucoses usually run 500. Smokes a pack of cigarettes a day, denies any regular drug or alcohol use Review of Systems: Review of Systems: All other systems within normal limits except for as noted in the HPI Current Medications: Current Medications Medications (Trade) Dose Ordered Sig/Hayley Start Time Stop Time Status Last Admin Dose Admin Aspirin (Aspirin Chewable) 324 mg 1X ONCE 04/04/21 23:30 04/04/21 23:31 DC 04/04/21 23:51 324 MG Allergies: Allergies: Allergies Coded Allergies Type Severity Reaction Last Updated Verified azithromycin Allergy Intermediate 04/30/16 No divalproex sodium Allergy Intermediate 04/30/16 No niacin Allergy Intermediate 04/30/16 No Physical Exam: PE: Constitutional: Well developed, well nourished, no acute distress, non-toxic appearance. [] HENT: Normocephalic, atraumatic, bilateral external ears normal, nose normal. [] Eyes: PERRLA, conjunctiva normal, no discharge. [] Neck: No rigidity, supple, no stridor. [] Cardiovascular: Regular rate and rhythm, brisk cap refill symmetric strong radial pulse [] Lungs & Thorax: Non labored symmetric respirations, no tachypnea or respiratory distress [] Abdomen: Soft, nondistended. Skin: Warm, dry, no erythema, no rash. [] Back: Unremarkable Extremities: No deformities, range of motion grossly intact, no lower extremity edema [] Neurologic: Alert and oriented X 3, no focal deficits noted. [] Psychologic: Affect normal, judgement normal, mood normal. [] Current Patient Data: Labs: Laboratory Tests Test 04/04/21 23:25 04/05/21 00:01 04/05/21 00:10 White Blood Count 6.8 x10^3/uL (4.0-11.0) Red Blood Count 4.31 x10^6/uL (4.30-5.70) Hemoglobin 13.7 g/dL (13.0-17.5) Hematocrit 40.6 % (39.0-53.0) Mean Corpuscular Volume 94 fL (79-100) Mean Corpuscular Hemoglobin 32 pg (25-35) Mean Corpuscular Hemoglobin Concent 34 g/dL (31-37) Red Cell Distribution Width 13.8 % (11.5-14.5) Platelet Count 161 x10^3/uL (140-400) Neutrophils (%) (Auto) 74 % (31-73) H Lymphocytes (%) (Auto) 15 % (24-48) L Monocytes (%) (Auto) 9 % (0-9) Eosinophils (%) (Auto) 2 % (0-3) Basophils (%) (Auto) 1 % (0-3) Neutrophils # (Auto) 5.0 x10^3/uL (1.8-7.7) Lymphocytes # (Auto) 1.0 x10^3/uL (1.0-4.8) Monocytes # (Auto) 0.6 x10^3/uL (0.0-1.1) Eosinophils # (Auto) 0.2 x10^3/uL (0.0-0.7) Basophils # (Auto) 0.0 x10^3/uL (0.0-0.2) Prothrombin Time 12.7 SEC (11.7-14.0) Prothrombin Time INR 1.0 (0.8-1.1) D-Dimer (Rocio) 0.61 ug/mlFEU (0.00-0.50) H Sodium Level 135 mmol/L (136-145) L Potassium Level 4.6 mmol/L (3.5-5.1) Chloride Level 96 mmol/L (98-107) L Carbon Dioxide Level 31 mmol/L (21-32) Anion Gap 8 (6-14) Blood Urea Nitrogen 35 mg/dL (8-26) H Creatinine 2.5 mg/dL (0.7-1.3) H Estimated GFR (Cockcroft-Gault) 25.4 BUN/Creatinine Ratio 14 (6-20) Glucose Level 546 mg/dL (70-99) *H Calcium Level 8.9 mg/dL (8.5-10.1) Magnesium Level 2.3 mg/dL (1.8-2.4) Total Bilirubin 0.5 mg/dL (0.2-1.0) Aspartate Amino Transferase (AST) 18 U/L (15-37) Alanine Aminotransferase (ALT) 25 U/L (16-63) Alkaline Phosphatase 133 U/L (46-116) H Troponin I High Sensitivity 150 ng/L (4-75) H FA-Ryx-P-Type Natriuretic Peptide 6816 pg/mL (0-124) H Total Protein 6.7 g/dL (6.4-8.2) Albumin 3.2 g/dL (3.4-5.0) L Albumin/Globulin Ratio 0.9 (1.0-1.7) L Lipase 232 U/L (73-393) Ethyl Alcohol Level < 10 mg/dL (0-10) POC Venous pH 7.33 (7.32-7.42) POC Venous pCO2 61 mmHg (41-51) H POC Venous pO2 28 mmHg (20-40) Venous Blood HCO3 32 mmol/L (24-28) H POC Venous O2 Saturation (Bharati) 46 % POC FiO2 21.0 Urine Collection Type Unknown Urine Color Yellow Urine Clarity Clear Urine pH 6.0 (<5.0-8.0) Urine Specific [place] 1.025 (1.000-1.030) Urine Protein 100 mg/dL (NEG-TRACE) Urine Glucose (UA) >=1000 mg/dL (NEG) Urine Ketones (Stick) Negative mg/dL (NEG) Urine Blood Negative (NEG) Urine Nitrite Negative (NEG) Urine Bilirubin Negative (NEG) Urine Urobilinogen Dipstick 0.2 mg/dL (0.2 mg/dL) Urine Leukocyte Esterase Negative (NEG) Urine RBC 0 /HPF (0-2) Urine WBC 0 /HPF (0-4) Urine Squamous Epithelial Cells Occ /LPF Urine Bacteria 0 /HPF (0-FEW) Urine Opiates Screen Neg (NEG) Urine Methadone Screen Neg (NEG) Urine Barbiturates Neg (NEG) Urine Phencyclidine Screen Neg (NEG) Urine Amphetamine/Methamphetamine Pos (NEG) Urine Benzodiazepines Screen Neg (NEG) Urine Cocaine Screen Neg (NEG) Urine Cannabinoids Screen Neg (NEG) Urine Ethyl Alcohol Neg (NEG) Laboratory Tests 04/04/21 23:25 Laboratory Tests 04/04/21 23:25 Vital Signs: Vital Signs Date Time Temp Pulse Resp B/P (MAP) Pulse Ox O2 Delivery O2 Flow Rate FiO2 04/04/21 22:44 97.9 79 21 181/89 (119) 99 Room Air 97.9 EKG: EKG: sinus rhythm, heart rate 70 bpm, left axis deviation, no ST elevation depression, no ectopy. No significant change compared to ECG dated 07-08-11[] Heart Score: C/O Chest Pain: Yes HEART Score for Chest Pain: HEART Score for Chest Pain Response (Comments) Value History Moderately Suspicious 1 ECG Nonspecific Repolarizatio 1 Age > 65 2 Risk Factors 1 or 2 Risk Factors 1 Troponin >1-<3x Normal Limit 1 Total 6 Risk Factors: Risk Factors: DM, Current or recent (<one month) smoker, HTN, HLP, family history of CAD, obesity. Risk Scores: Score 0 - 3: 2.5% MACE over next 6 weeks - Discharge Home Score 4 - 6: 20.3% MACE over next 6 weeks - Admit for Clinical Observation Score 7 - 10: 72.7% MACE over next 6 weeks - Early Invasive Strategies Radiology/Procedures: Radiology/Procedures: [facility] [address] [place] [address] IMAGING REPORT Signed PATIENT: EM WEISS AACCOUNT: [id number] : 1945 LOCATION: ER AGE: 75 SEX: M EXAM STATUS: PRE ER ORD. PHYSICIAN: OWEN MENDOSA MD REASON: chest pain PROCEDURE: CHEST AP ONLY XR CHEST 1V Clinical History: Reason: chest pain / Spl. Instructions: / History: Technique: AP view of the chest was obtained at 04/04/2021 11:20 PM. Comparison: April 17, 2020. Findings: The cardiomediastinal silhouette is normal. The pulmonary vasculature is normal. There is an old fracture of the posterior left seventh rib. The lungs and pleural margins are clear. Impression: No evidence of an acute cardiopulmonary process. Electronically signed by: Irma Pulido III, MD (04/04/2021 11:31 PM) [facility] DICTATED and SIGNED BY: IRMA PULIDO III, MD DATE: 04/04/21 [id number] [] Course & Med Decision Making: Course & Med Decision Making Pertinent Labs and Imaging studies reviewed. (See chart for details) Patient has elevated troponin and a heart score of 6. Discussed hospitalization for trending troponins, cardiology consult and hyperglycemia control. Patient states that he refuses to stay in the hospital. Discussed risks and benefits including . Patient elected to sign AMA paperwork. [] Dragon Disclaimer: Dragon Disclaimer: This electronic medical record was generated, in whole or in part, using a voice recognition dictation system. Departure Departure Impression: Primary Impression: Chest pain Additional Impressions: Elevated troponin Uncontrolled diabetes mellitus with hyperglycemia Disposition: LEFT AGAINST MEDICAL ADVICE Condition: GUARDED Referrals: UNKNOWN PCP NAME (PCP) Problem Qualifiers OWEN MENDOSA MD Apr 04, 2021 23:20
[2021-04-04] MEDS ORDERED: ASPIRIN CHEWABLE 81 MG TABLET. PO ONE (23:30)
[2021-04-04 23:33] LABS: BASO % 1 % (0-3); EOS # 0.2 x10^3/uL (0.0-0.7); EOS % 2 % (0-3); HEMATOCRIT 40.6 % (39.0-53.0); HEMOGLOBIN 13.7 g/dL (13.0-17.5); LYMPH % 15 % (24-48); MEAN CORPUSCULAR HEMOGLOBIN 32 pg (25-35); MEAN CORPUSCULAR HGB CONC 34 g/dL (31-37); MEAN CORPUSCULAR VOLUME 94 fL (79-100); MONO # 0.6 x10^3/uL (0.0-1.1); MONO % 9 % (0-9); NEUT % 74 % (31-73); PLATELET COUNT 161 x10^3/uL (140-400); RED BLOOD COUNT 4.31 x10^6/uL (4.30-5.70); RED CELL DISTRIBUTION WIDTH 13.8 % (11.5-14.5); WHITE BLOOD COUNT 6.8 x10^3/uL (4.0-11.0)
--- NOTE | 2021-04-04 23:33 | RAD ---
XR CHEST 1V Clinical History: Reason: chest pain / Spl. Instructions: / History: Technique: AP view of the chest was obtained at 04/04/2021 11:20 PM. Comparison: April 17, 2020. Findings: The cardiomediastinal silhouette is normal. The pulmonary vasculature is normal. There is an old frac ture of the posterior left seventh rib. The lungs and pleural margins are clear. Impression: No evidence of an acute cardiopulmonary process. Electronically signed by: Lucien Pulido III, MD (04/04/2021 11:31 PM) [facility]END[facility]
[2021-04-04 23:41] LABS: PROTHROMBIN TIME PATIENT 12.7 SEC (11.7-14.0)
[2021-04-04 23:44] LABS: D-DIMER 0.61 ug/mlFEU (0.00-0.50)
[2021-04-04 23:52] LABS: ALBUMIN 3.2 g/dL (3.4-5.0); ALBUMIN/GLOBULIN RATIO 0.9 (1.0-1.7); CALCIUM 8.9 mg/dL (8.5-10.1); CREATININE 2.5 mg/dL (0.7-1.3); GFR 25.4; MAGNESIUM 2.3 mg/dL (1.8-2.4); POTASSIUM 4.6 mmol/L (3.5-5.1); TOTAL BILIRUBIN 0.5 mg/dL (0.2-1.0); TOTAL PROTEIN 6.7 g/dL (6.4-8.2)
[2021-04-05 00:08] LABS: ISTAT BE VENOUS 6 mmol/L (0-3); ISTAT HCO3 VEN 32 mmol/L (24-28); ISTAT PCO2 VEN 61 mmHg (41-51); ISTAT PH VEN 7.33 (7.32-7.42); ISTAT PO2 VEN 28 mmHg (20-40); ISTAT SAT O2 VEN 46 %; ISTAT TCO2 VEN 34 mmol/L (21-32)
[2021-04-05 00:16] LABS: BILIRUBIN,URINE NEGATIVE (NEG); CLARITY,URINE CLEAR; COLOR,URINE YELLOW; NITRITE,URINE NEGATIVE (NEG); PROTEIN,URINE 100 mg/dL (NEG-TRACE); UROBILINOGEN,URINE 0.2 mg/dL (0.2 mg/dL)
[2021-04-05 00:21] LABS: BACTERIA,URINE 0 /HPF (0-FEW); RBC,URINE 0 /HPF (0-2); WBC,URINE 0 /HPF (0-4)
[2021-04-05 00:22] LABS: BARBITURATES NEG (NEG); BENZODIAZEPINES NEG (NEG); CANNABINOIDS NEG (NEG); COCAINE NEG (NEG); METHADONE NEG (NEG); OPIATES NEG (NEG); PHENCYCLIDINE NEG (NEG)
[2021-04-05 00:30] VITALS: BP 156/65
[2021-04-05 00:34] LABS: AMPHETAMINE/METHAMPHETAMINE POS (NEG)
--- NOTE | 2021-04-05 04:56 | EKG ---
[facility] [address] [place] [address] Test Date: 2021-04-04 Test Time: 23:10:02 Pat Name: EM WEISS Department: Room: Gender: M [employer] Technician: : 1945 Requested By: OWEN MENDOSA Order Number: [id number] Reading MD: Desmond Whitten Measurements Intervals [place] Rate: 72 P: MI: QRS: -63 QRSD: 124 T: 13 QT: 340 QTc: 374 Interpretive Statements SINUS RHYTHM ABNORMAL LEFT AXIS DEVIATION LEFT ANTERIOR FASCICULAR BLOCK RIGHT BUNDLE BRANCH BLOCK BIFASCICULAR BLOCK ABNORMAL ECG RI6.01 Compared to ECG 04/17/2020 00:43:16 Electronically Signed On 04-07-2021 7:28:57 RESIDENT PHYSICIAN by Desmond Whitten
== END 2021-04-05 01:10 | disposition left against medical advice (07) ==
LOC: ER 22:42
DX: R07.89 Other chest pain (principal); R77.8 Other specified abnormalities of plasma proteins; E11.65 Type 2 diabetes mellitus with hyperglycemia; K21.9 Gastro-esophageal reflux disease without esophagitis; E78.00 Pure hypercholesterolemia, unspecified; I12.9 Hypertensive chronic kidney disease with stage 1 through stage 4 chronic kidney disease, or unspecified chronic kidney disease; E11.22 Type 2 diabetes mellitus with diabetic chronic kidney disease; N18.9 Chronic kidney disease, unspecified; E03.9 Hypothyroidism, unspecified; G89.29 Other chronic pain; F17.210 Nicotine dependence, cigarettes, uncomplicated; Z86.73 Personal history of transient ischemic attack (TIA), and cerebral infarction without residual deficits; Z88.1 Allergy status to other antibiotic agents; Z88.8 Allergy status to other drugs, medicaments and biological substances
CPT/HCPCS: 36415; 71045; 80053; 80307; 81001; 82803; 83690; 83735; 83880; 84484; 85025; 85379; 85610; 93005; 99285; G0480